=== PATIENT | male | born 1970 | race Caucasian/White ===

== ENCOUNTER 2016-12-10 01:10 | Emergency (ER) | payer MEDICAID ==
[~2016-12-10] VITALS: Ht 170.2 cm; Wt 75.0 kg
[~2016-12-10 01:10] MED LIST: AMLO10TA55 PO; CARV6 PO; INSLAN SQ; INSNOV SQ; LEVE500T53 PO; PANT40TA25 PO
[2016-12-10 01:32] LABS: GLUCOSE,POINT OF CARE 154 MG/DL (70-110)
[2016-12-10] MEDS ORDERED: ONDANSETRON HCL 4 MG/2 ML VIAL IVP ONE ×2 (02:15→04:45)
[2016-12-10 02:22] LABS: GLUCOSE COMMENT 1 Doctor Notified; GLUCOSE,POINT OF CARE 267 MG/DL (70-110)
[2016-12-10 02:25] LABS: BASOPHILS % (AUTO) 0.3 % (0.0-2.0); EOSINOPHILS % (AUTO) 1.2 % (1.0-6.0); HEMATOCRIT 39.9 % (41-53); HEMOGLOBIN 13.1 g/dL (13.5-17.5); LYMPHOCYTES # (AUTO) 1.6 K/uL (1.0-4.8); MEAN CORPUSCULAR HGB CONC 32.9 G/dL (31.0-37.0); MEAN CORPUSCULAR VOLUME 91 fL (80-100); MONOCYTES # (AUTO) 0.7 K/uL (0.1-1.0); MONOCYTES % (AUTO) 7.2 % (2.0-9.0); NEUTROPHILS # (AUTO) 6.7 K/uL (1.8-7.7); NEUTROPHILS % (AUTO) 73.3 % (40.0-70.0); PLATELET COUNT (AUTO) 572 K/uL (150-450); RED BLOOD CELL COUNT(AUTO) 4.38 MIL/uL (4.50-5.90); RED CELL DISTRIBUTION WIDTH 17.4 % (11.5-14.5); WHITE BLOOD COUNT (AUTO) 9.1 K/uL (4.5-11.0)
[2016-12-10 02:33] LABS: ANION GAP 9 mmol/L (8-16); CALCIUM, TOTAL 8.7 mg/dL (8.8-10.5); CARBON DIOXIDE 27 mmol/L (22-29); CHLORIDE 100 mmol/L (98-107); CREATININE 1.13 mg/dL (0.60-1.30); GLOMERULAR FILTR. RATE CALC > 60 mL/min (>60); POTASSIUM 3.9 mmol/L (3.5-5.1); SODIUM SERUM 136 mmol/L (136-145); UREA NITROGEN, BLOOD 15 mg/dL (7-18)
[2016-12-10 02:39] LABS: ALANINE AMINOTRANSFERASE 12 U/L (12-78); ALBUMIN 3.2 g/dL (3.4-5.0); ASPARTATE AMINOTRANSFERASE 14 U/L (15-37); BILIRUBIN,TOTAL 0.1 mg/dL (0.1-1.0)
[2016-12-10] MEDS ORDERED: PANTOPRAZOLE SODIUM 40 MG/VIAL IVP ONE (03:15)
[2016-12-10] MEDS ORDERED: DONNATAL/LIDOCAINE/MAALOX 55 ML BOTTLE PO ONE ×2 (03:15→04:30)
[2016-12-10] MEDS ORDERED: RANITIDINE HCL 150 MG TABLET PO ONE (04:30)
[2016-12-10 04:43] VITALS: BP 140/78
== END 2016-12-10 05:34 | disposition home or self-care (01) ==
LOC: EMS 01:12
DX: E09.649 Drug or chemical induced diabetes mellitus with hypoglycemia without coma (principal); R41.82 Altered mental status, unspecified; T68.XXXA Hypothermia, initial encounter; F10.20 Alcohol dependence, uncomplicated; F17.210 Nicotine dependence, cigarettes, uncomplicated; I10 Essential (primary) hypertension; K21.9 Gastro-esophageal reflux disease without esophagitis; Z79.4 Long term (current) use of insulin; Z88.8 Allergy status to other drugs, medicaments and biological substances
CPT/HCPCS: 36415; 80053; 82948; 82962; 84484; 85025; 93005; 93041; 96374; 96375; 96376; 99285; 99406; C9113; G0480; J2405; Z7610

== ENCOUNTER 2016-12-14 02:42 | Inpatient (IN) | payer MEDICAID ==
[~2016-12-14] VITALS: Ht 167.6 cm; Wt 65.1 kg
[2016-12-14 03:37] LABS: BASOPHILS % (AUTO) 0.5 % (0.0-2.0); EOSINOPHILS % (AUTO) 0.8 % (1.0-6.0); HEMATOCRIT 39.4 % (41-53); LYMPHOCYTES # (AUTO) 1.2 K/uL (1.0-4.8); LYMPHOCYTES % (AUTO) 19.7 % (22.0-44.0); MEAN CORPUSCULAR HEMOGLOBIN 30.1 pg (26.0-34.0); MEAN CORPUSCULAR HGB CONC 32.9 G/dL (31.0-37.0); MEAN CORPUSCULAR VOLUME 91 fL (80-100); MONOCYTES # (AUTO) 0.6 K/uL (0.1-1.0); MONOCYTES % (AUTO) 9.6 % (2.0-9.0); NEUTROPHILS # (AUTO) 4.1 K/uL (1.8-7.7); NEUTROPHILS % (AUTO) 69.4 % (40.0-70.0); PLATELET COUNT (AUTO) 409 K/uL (150-450); RED BLOOD CELL COUNT(AUTO) 4.31 MIL/uL (4.50-5.90); RED CELL DISTRIBUTION WIDTH 17.2 % (11.5-14.5); WHITE BLOOD COUNT (AUTO) 5.9 K/uL (4.5-11.0)
[2016-12-14 03:49] LABS: ANION GAP 9 mmol/L (8-16); CALCIUM, TOTAL 8.7 mg/dL (8.8-10.5); CARBON DIOXIDE 27 mmol/L (22-29); CHLORIDE 100 mmol/L (98-107); CREATININE 1.28 mg/dL (0.60-1.30); GLOMERULAR FILTR. RATE CALC 60 mL/min (>60); POTASSIUM 4.5 mmol/L (3.5-5.1); SODIUM SERUM 136 mmol/L (136-145); UREA NITROGEN, BLOOD 13 mg/dL (7-18)
[2016-12-14 03:55] LABS: ALANINE AMINOTRANSFERASE 16 U/L (12-78); ALBUMIN 3.1 g/dL (3.4-5.0); ASPARTATE AMINOTRANSFERASE 16 U/L (15-37); BILIRUBIN,TOTAL 0.4 mg/dL (0.1-1.0); TOTAL PROTEIN, SERUM 7.5 g/dL (6.4-8.2)
[2016-12-14 04:00] LABS: RBC MORPHOLOGY COMMENT ABNORMAL RBC MORPH
[2016-12-14 04:51] LABS: GLUCOSE,POINT OF CARE 247 MG/DL (70-110)
[2016-12-14] MEDS ORDERED: ONDANSETRON HCL 4 MG/2 ML VIAL IVP PRN (05:00)
[2016-12-14] MEDS ORDERED: 0.9% SODIUM CHLORIDE 10 ML SYRINGE IVP PRN (05:00)
[2016-12-14] MEDS ORDERED: ACETAMINOPHEN 325 MG TABLET PO PRN ×2 (05:00→11:00)
[2016-12-14 05:29] LABS: APPEARANCE,URINE CLEAR (CLEAR); GLUCOSE, URINE (UA) 100 mg/dL (NEGATIVE); KETONES,URINE NEGATIVE (NEGATIVE); LEUKOCYTE ESTERASE ,URINE NEGATIVE (NEGATIVE); OCCULT BLOOD,URINE NEGATIVE (NEGATIVE); PH,URINE 6.5 (5.0-8.0); PROTEIN,URINE SEE CONFIRM (NEGATIVE)
[2016-12-14 05:36] LABS: SULFOSALICYLIC ACID,URINE 1+ (Negative)
[2016-12-14 05:37] LABS: RBC,URINE None Seen /HPF (0-2); SQUAMOUS EPITHELIAL CELL,UR Rare /LPF (None Seen); WBC,URINE 0-2 /HPF (0-5)
[2016-12-14 08:06] LABS: GLUCOSE,POINT OF CARE 124 MG/DL (70-110)
[2016-12-14 09:49] VITALS: BP 142/90
[2016-12-14] MEDS ORDERED: MAGNESIUM HYDROXIDE SUSPENSION 30 ML UDCUP PO PRN (11:00)
[2016-12-14] MEDS ORDERED: DEXTROSE 50%-WATER 25 GM/50 ML SYRINGE IVP PRN (11:00)
[2016-12-14 11:39] VITALS: BP 129/65
[2016-12-14] MEDS: OxyCODONE HCL/ACETAMINOPHEN 5-325 MG TABLET PO PRN ×2 (11:39→20:01)
[2016-12-14] MEDS: PANTOPRAZOLE SODIUM 40 MG DR TABLET PO SCH (11:39)
[2016-12-14] MEDS: INSULIN ASPART 100 UNITS/ML SQ PRN ×3 (11:42→21:21)
[2016-12-14 13:06] LABS: GLUCOSE,POINT OF CARE 184 MG/DL (70-110)
[2016-12-14] MEDS ORDERED: INFLUENZA VIRUS VACCINE QVS 2016-17 (3YR+)/PF 60 MCG/0.5 ML SYRINGE IM ONE (14:00)
[2016-12-14 16:37] VITALS: BP 136/85
[2016-12-14 18:30] LABS: GLUCOSE COMMENT 1 Received Meds; GLUCOSE,POINT OF CARE 285 MG/DL (70-110)
[2016-12-14 19:17] VITALS: BP 137/89
[2016-12-14] MEDS: LevETIRAcetam 500 MG TABLET PO SCH (20:00)
[2016-12-14] MEDS: DOCUSATE SODIUM 100 MG CAPSULE PO SCH (20:00)
[2016-12-14] MEDS: HEPARIN SODIUM,PORCINE 5,000 UNITS/ML VIAL SQ SCH (20:04)
[2016-12-14 21:57] LABS: GLUCOSE COMMENT 1 Received Meds; GLUCOSE,POINT OF CARE 192 MG/DL (70-110)
[2016-12-15 00:08] VITALS: BP 129/80
[2016-12-15 04:37] VITALS: BP 136/89
[2016-12-15] MEDS: INSULIN ASPART 100 UNITS/ML SQ PRN ×2 (05:54→11:47)
[2016-12-15] MEDS: OxyCODONE HCL/ACETAMINOPHEN 5-325 MG TABLET PO PRN ×2 (05:57→10:52)
[2016-12-15 06:16] LABS: GLUCOSE,POINT OF CARE 392 MG/DL (70-110)
[2016-12-15 08:08] VITALS: BP 118/87
[2016-12-15] MEDS: DOCUSATE SODIUM 100 MG CAPSULE PO SCH (08:37)
[2016-12-15] MEDS: HEPARIN SODIUM,PORCINE 5,000 UNITS/ML VIAL SQ SCH (08:37)
[2016-12-15] MEDS: PANTOPRAZOLE SODIUM 40 MG DR TABLET PO SCH (08:37)
[2016-12-15] MEDS: LevETIRAcetam 500 MG TABLET PO SCH (08:37)
[2016-12-15 11:10] VITALS: BP 158/95
[2016-12-15 12:06] LABS: GLUCOSE,POINT OF CARE 385 MG/DL (70-110)
== END 2016-12-15 14:41 | disposition home or self-care (01) | DRG 420 ==
LOC: EMS 02:44 → 6N 07:57
PROVIDERS: ADMIT Internal Medicine; ATTEND Internal Medicine
DX: E11.649 Type 2 diabetes mellitus with hypoglycemia without coma (principal); T68.XXXA Hypothermia, initial encounter; Z86.74 Personal history of sudden cardiac arrest; E44.0 Moderate protein-calorie malnutrition; E11.65 Type 2 diabetes mellitus with hyperglycemia; F10.20 Alcohol dependence, uncomplicated; I10 Essential (primary) hypertension; E11.319 Type 2 diabetes mellitus with unspecified diabetic retinopathy without macular edema; G40.909 Epilepsy, unspecified, not intractable, without status epilepticus; F17.210 Nicotine dependence, cigarettes, uncomplicated; F81.9 Developmental disorder of scholastic skills, unspecified; Z88.1 Allergy status to other antibiotic agents; Z68.23 Body mass index [BMI] 23.0-23.9, adult; Z88.8 Allergy status to other drugs, medicaments and biological substances; Z79.899 Other long term (current) drug therapy; Z79.4 Long term (current) use of insulin; Z89.511 Acquired absence of right leg below knee
CPT/HCPCS: 82962; 93005; 99285; G0480; J1644

== ENCOUNTER 2016-12-21 01:32 | Emergency (ER) | payer MEDICAID ==
[~2016-12-21] VITALS: Ht 170.2 cm; Wt 75.0 kg
[~2016-12-21 01:32] MED LIST changes: -AMLO10TA55 PO; -INSLAN SQ
[2016-12-21] MEDS ORDERED: DEXTROSE 50%-WATER 25 GM/50 ML SYRINGE IVP ONE (02:15)
[2016-12-21] MEDS ORDERED: MAGNESIUM SULFATE 2 GM, MVI, ADULT NO.1 WITH VIT K 10 ML, THIAMINE HCL 100 MG, FOLIC AC... IV ONE ×5 (02:15)
[2016-12-21 03:04] LABS: BASOPHILS # (AUTO) 0.05 K/uL (0.00-0.20); BASOPHILS % (AUTO) 0.3 % (0.0-2.0); EOSINOPHILS # (AUTO) 0.05 K/uL (0.00-0.70); EOSINOPHILS % (AUTO) 0.28 % (1.0-6.0); HEMATOCRIT 38.7 % (41-53); LYMPHOCYTES # (AUTO) 1.6 K/uL (1.0-4.8); LYMPHOCYTES % (AUTO) 8.5 % (22.0-44.0); MEAN CORPUSCULAR HEMOGLOBIN 30.8 pg (26.0-34.0); MEAN CORPUSCULAR HGB CONC 33.4 G/dL (31.0-37.0); MEAN CORPUSCULAR VOLUME 92 fL (80-100); MONOCYTES % (AUTO) 5.1 % (2.0-9.0); NEUTROPHILS # (AUTO) 16.3 K/uL (1.8-7.7); NEUTROPHILS % (AUTO) 85.9 % (40.0-70.0); PLATELET COUNT (AUTO) 296 K/uL (150-450); RED CELL DISTRIBUTION WIDTH 17.2 % (11.5-14.5); WHITE BLOOD COUNT (AUTO) 18.9 K/uL (4.5-11.0)
[2016-12-21 03:14] LABS: ANION GAP 10 mmol/L (8-16); CALCIUM, TOTAL 8.3 mg/dL (8.8-10.5); CARBON DIOXIDE 23 mmol/L (22-29); CHLORIDE 103 mmol/L (98-107); CREATININE 1.18 mg/dL (0.60-1.30); GLOMERULAR FILTR. RATE CALC > 60 mL/min (>60); POTASSIUM 4.3 mmol/L (3.5-5.1); SODIUM SERUM 136 mmol/L (136-145); UREA NITROGEN, BLOOD 18 mg/dL (7-18)
[2016-12-21 03:19] LABS: ALANINE AMINOTRANSFERASE 16 U/L (12-78); ASPARTATE AMINOTRANSFERASE 21 U/L (15-37); BILIRUBIN,TOTAL 0.3 mg/dL (0.1-1.0); TOTAL PROTEIN, SERUM 7.6 g/dL (6.4-8.2)
[2016-12-21 04:57] LABS: GLUCOSE,POINT OF CARE 104 MG/DL (70-110)
[2016-12-21 06:00] VITALS: BP 129/71
== END 2016-12-21 06:02 | disposition home or self-care (01) ==
LOC: EMS 01:35
DX: T68.XXXA Hypothermia, initial encounter (principal); E11.649 Type 2 diabetes mellitus with hypoglycemia without coma; J00 Acute nasopharyngitis [common cold]; I10 Essential (primary) hypertension; F17.210 Nicotine dependence, cigarettes, uncomplicated; Z79.4 Long term (current) use of insulin; Z88.1 Allergy status to other antibiotic agents; Z88.8 Allergy status to other drugs, medicaments and biological substances
CPT/HCPCS: 36415; 80053; 82962; 85025; 96365; 96366; 96375; 99285; G0480; J3411; J3475; J3490 ×2; J7030

== ENCOUNTER 2017-05-24 00:52 | Emergency (ER) | payer MEDICAID ==
[~2017-05-24] VITALS: Ht 170.2 cm; Wt 75.0 kg
[2017-05-24 02:09] LABS: BASOPHILS # (AUTO) 0.07 K/uL (0.00-0.20); BASOPHILS % (AUTO) 0.4 % (0.0-2.0); EOSINOPHILS # (AUTO) 0.08 K/uL (0.00-0.70); EOSINOPHILS % (AUTO) 0.45 % (1.0-6.0); HEMATOCRIT 33.1 % (41-53); HEMOGLOBIN 11.1 g/dL (13.5-17.5); LYMPHOCYTES # (AUTO) 1.2 K/uL (1.0-4.8); LYMPHOCYTES % (AUTO) 6.9 % (22.0-44.0); MEAN CORPUSCULAR HEMOGLOBIN 31.5 pg (26.0-34.0); MEAN CORPUSCULAR HGB CONC 33.5 G/dL (31.0-37.0); MEAN CORPUSCULAR VOLUME 94 fL (80-100); MONOCYTES % (AUTO) 5.5 % (2.0-9.0); NEUTROPHILS # (AUTO) 15.1 K/uL (1.8-7.7); PLATELET COUNT (AUTO) 419 K/uL (150-450); RED BLOOD CELL COUNT(AUTO) 3.52 MIL/uL (4.50-5.90); RED CELL DISTRIBUTION WIDTH 16.6 % (11.5-14.5); WHITE BLOOD COUNT (AUTO) 17.4 K/uL (4.5-11.0)
[2017-05-24 02:10] LABS: NEUTROPHILS % (AUTO) 86.7 % (40.0-70.0)
[2017-05-24 02:28] LABS: CALCIUM, TOTAL 8.9 mg/dL (8.8-10.5); CREATININE 1.86 mg/dL (0.60-1.30)
[2017-05-24 02:33] LABS: ALBUMIN 3.3 g/dL (3.4-5.0); BILIRUBIN,TOTAL 0.2 mg/dL (0.1-1.0); TOTAL PROTEIN, SERUM 7.4 g/dL (6.4-8.2)
[2017-05-24] MEDS ORDERED: DEXTROSE 50%-WATER 25 GM/50 ML SYRINGE IVP ONE ×2 (04:00)
[2017-05-24] MEDS ORDERED: ONDANSETRON HCL 4 MG/2 ML VIAL IVP ONE (06:00)
[2017-05-24 06:28] VITALS: BP 143/64
[2017-05-24 07:11] LABS: APPEARANCE,URINE CLEAR (CLEAR); GLUCOSE, URINE (UA) NEGATIVE (NEGATIVE); KETONES,URINE NEGATIVE (NEGATIVE); LEUKOCYTE ESTERASE ,URINE NEGATIVE (NEGATIVE); OCCULT BLOOD,URINE NEGATIVE (NEGATIVE); PROTEIN,URINE TRACE (NEGATIVE)
[2017-05-24 07:16] LABS: RBC,URINE 0-2 /HPF (0-2); WBC,URINE 0-2 /HPF (0-5)
[2017-05-24 08:59] LABS: GLUCOSE COMMENT 1 Juice/Food/D50 Given; GLUCOSE,POINT OF CARE 195 MG/DL (70-110)
[2017-05-24 08:59] LABS: GLUCOSE COMMENT 1 Repeated; GLUCOSE,POINT OF CARE 94 MG/DL (70-110)
[2017-05-24 08:59] LABS: GLUCOSE COMMENT 2 Doctor Notified; GLUCOSE,POINT OF CARE 189 MG/DL (70-110)
[2017-05-24 08:59] LABS: GLUCOSE,POINT OF CARE 135 MG/DL (70-110)
[2017-05-24 09:04] LABS: GLUCOSE COMMENT 1 Doctor Notified; GLUCOSE,POINT OF CARE 124 MG/DL (70-110)
[2017-05-24 09:04] LABS: GLUCOSE COMMENT 1 Received Meds; GLUCOSE,POINT OF CARE 133 MG/DL (70-110)
[2017-06-11] MEDS ORDERED: INSLAN SQ (09:16)
== END 2017-05-24 07:00 | disposition home or self-care (01) ==
LOC: EMS 00:54
DX: E83.51 Hypocalcemia (principal); I10 Essential (primary) hypertension; E11.29 Type 2 diabetes mellitus with other diabetic kidney complication; F17.210 Nicotine dependence, cigarettes, uncomplicated; Z79.4 Long term (current) use of insulin; Z88.1 Allergy status to other antibiotic agents; Z88.8 Allergy status to other drugs, medicaments and biological substances
CPT/HCPCS: 36415; 80053; 80307; 81001; 82962; 85025; 96374; 96375; 99284; J2405

== ENCOUNTER 2017-07-29 20:47 | Emergency (ER) | payer MEDICAID ==
[~2017-07-29] VITALS: Ht 170.2 cm; Wt 77.3 kg
[~2017-07-29 20:47] MED LIST changes: +INSLAN SQ; +LACT30L PO
[2017-07-29 22:07] LABS: ANION GAP 15 mmol/L (8-16); CALCIUM, TOTAL 8.6 mg/dL (8.8-10.5); CARBON DIOXIDE 17 mmol/L (22-29); CHLORIDE 110 mmol/L (98-107); CREATININE 1.52 mg/dL (0.60-1.30); GLOMERULAR FILTR. RATE CALC 49 mL/min (>60); POTASSIUM 4.2 mmol/L (3.5-5.1); SODIUM SERUM 142 mmol/L (136-145); UREA NITROGEN, BLOOD 16 mg/dL (7-18)
[2017-07-29 22:15] LABS: ALANINE AMINOTRANSFERASE 40 U/L (12-78); ALBUMIN 3.3 g/dL (3.4-5.0); ASPARTATE AMINOTRANSFERASE 24 U/L (15-37); BILIRUBIN,TOTAL 0.1 mg/dL (0.1-1.0)
[2017-07-29 22:23] LABS: TROPONIN I < 0.02 ng/mL (0.00-0.05)
[2017-07-29 22:30] LABS: BASOPHILS % (AUTO) 0.3 % (0.0-2.0); EOSINOPHILS % (AUTO) 0 % (1.0-6.0); HEMATOCRIT 31.6 % (41-53); LYMPHOCYTES # (AUTO) 1.6 K/uL (1.0-4.8); LYMPHOCYTES % (AUTO) 12.4 % (22.0-44.0); MEAN CORPUSCULAR HEMOGLOBIN 31.7 pg (26.0-34.0); MEAN CORPUSCULAR HGB CONC 34.8 G/dL (31.0-37.0); MEAN CORPUSCULAR VOLUME 91 fL (80-100); MONOCYTES # (AUTO) 0.6 K/uL (0.1-1.0); MONOCYTES % (AUTO) 4.9 % (2.0-9.0); NEUTROPHILS # (AUTO) 10.3 K/uL (1.8-7.7); NEUTROPHILS % (AUTO) 82.4 % (40.0-70.0); PLATELET COUNT (AUTO) 360 K/uL (150-450); RED BLOOD CELL COUNT(AUTO) 3.47 MIL/uL (4.50-5.90); RED CELL DISTRIBUTION WIDTH 14.4 % (11.5-14.5); WHITE BLOOD COUNT (AUTO) 12.6 K/uL (4.5-11.0)
[2017-07-29 22:31] LABS: AMMONIA 116 umol/L (11-32)
[2017-07-29] MEDS ORDERED: LACTULOSE 20 GM/30 ML SOLUTION UDCUP PO ONE (23:15)
[2017-07-29 23:30] LABS: LACTIC ACID 2.6 mmol/L (0.4-2.0)
[2017-07-29 23:50] LABS: REFLEX LACTIC ACID? YES YES
[2017-07-30 00:01] VITALS: BP 134/62
[2017-07-30 09:59] LABS: GLUCOSE,POINT OF CARE 189 MG/DL (70-110)
[2017-07-30 09:59] LABS: GLUCOSE,POINT OF CARE 174 MG/DL (70-110)
[2017-07-30 09:59] LABS: GLUCOSE COMMENT 1 Doctor Notified; GLUCOSE,POINT OF CARE 167 MG/DL (70-110)
== END 2017-07-30 00:20 | disposition home or self-care (01) ==
LOC: EMS 20:49
DX: E11.649 Type 2 diabetes mellitus with hypoglycemia without coma (principal); F10.129 Alcohol abuse with intoxication, unspecified; I10 Essential (primary) hypertension; K74.60 Unspecified cirrhosis of liver; Z88.1 Allergy status to other antibiotic agents; Z88.8 Allergy status to other drugs, medicaments and biological substances
CPT/HCPCS: 36415; 80053; 82140; 82962; 83605; 83690; 84484; 85025; 99284; G0480

== ENCOUNTER 2017-07-31 01:42 | Emergency (ER) | payer MEDICAID ==
[~2017-07-31] VITALS: Ht 170.2 cm; Wt 68.2 kg
[2017-07-31 02:06] LABS: GLUCOSE,POINT OF CARE 115 MG/DL (70-110)
[2017-07-31 02:46] LABS: BASOPHILS % (AUTO) 0.6 % (0.0-2.0); EOSINOPHILS % (AUTO) 2.5 % (1.0-6.0); HEMOGLOBIN 11.3 g/dL (13.5-17.5); LYMPHOCYTES # (AUTO) 2.2 K/uL (1.0-4.8); LYMPHOCYTES % (AUTO) 28.6 % (22.0-44.0); MEAN CORPUSCULAR HEMOGLOBIN 31.5 pg (26.0-34.0); MEAN CORPUSCULAR HGB CONC 34.3 G/dL (31.0-37.0); MEAN CORPUSCULAR VOLUME 92 fL (80-100); MONOCYTES # (AUTO) 0.9 K/uL (0.1-1.0); MONOCYTES % (AUTO) 11.5 % (2.0-9.0); NEUTROPHILS # (AUTO) 4.3 K/uL (1.8-7.7); NEUTROPHILS % (AUTO) 56.8 % (40.0-70.0); PLATELET COUNT (AUTO) 414 K/uL (150-450); RED CELL DISTRIBUTION WIDTH 14.5 % (11.5-14.5); WHITE BLOOD COUNT (AUTO) 7.6 K/uL (4.5-11.0)
[2017-07-31 02:52] LABS: ANION GAP 14 mmol/L (8-16); CALCIUM, TOTAL 8.7 mg/dL (8.8-10.5); CARBON DIOXIDE 20 mmol/L (22-29); CHLORIDE 111 mmol/L (98-107); CREATININE 1.64 mg/dL (0.60-1.30); GLOMERULAR FILTR. RATE CALC 45 mL/min (>60); POTASSIUM 3.4 mmol/L (3.5-5.1); SODIUM SERUM 145 mmol/L (136-145); UREA NITROGEN, BLOOD 20 mg/dL (7-18)
[2017-07-31 02:59] LABS: ALANINE AMINOTRANSFERASE 40 U/L (12-78); ALBUMIN 3.7 g/dL (3.4-5.0); ASPARTATE AMINOTRANSFERASE 24 U/L (15-37); BILIRUBIN,TOTAL 0.2 mg/dL (0.1-1.0); TOTAL PROTEIN, SERUM 7.5 g/dL (6.4-8.2)
[2017-07-31 03:02] LABS: GLUCOSE,POINT OF CARE 162 MG/DL (70-110)
[2017-07-31] MEDS ORDERED: LACTULOSE 20 GM/30 ML SOLUTION UDCUP PO ONE (03:30)
[2017-07-31] MEDS ORDERED: POTASSIUM CHLORIDE 10% 40 MEQ/30 ML LIQUID UDCUP PO ONE (03:30)
[2017-07-31 04:10] VITALS: BP 136/76
[2017-07-31 04:42] LABS: GLUCOSE COMMENT 2 Doctor Notified; GLUCOSE,POINT OF CARE 189 MG/DL (70-110)
== END 2017-07-31 04:41 | disposition home or self-care (01) ==
LOC: EMS 01:46
DX: E11.649 Type 2 diabetes mellitus with hypoglycemia without coma (principal); E87.6 Hypokalemia; I10 Essential (primary) hypertension; F17.210 Nicotine dependence, cigarettes, uncomplicated; Z88.1 Allergy status to other antibiotic agents; Z88.8 Allergy status to other drugs, medicaments and biological substances; Z79.4 Long term (current) use of insulin
CPT/HCPCS: 36415; 80053; 82962; 85025; 99284; 99406; G0480

== ENCOUNTER 2017-10-02 07:36 | Inpatient (IN) | payer MEDICAID ==
[~2017-10-02] VITALS: Ht 175.3 cm; Wt 61.5 kg
[2017-10-02] MEDS ORDERED: PANT40TA25 PO (07:49)
[2017-10-02] MEDS ORDERED: FOLI1 PO (07:49)
[2017-10-02] MEDS ORDERED: TOPI100T37 PO (07:49)
[2017-10-02] MEDS ORDERED: ATOR10TA84 PO (07:49)
[2017-10-02] MEDS ORDERED: AMLO-512 PO (07:49)
[2017-10-02] MEDS ORDERED: HYDR-2924 PO (07:49)
[2017-10-02] MEDS ORDERED: DIVA500T35 PO (07:49)
[2017-10-02] MEDS ORDERED: CARV6 PO (07:49)
[2017-10-02] MEDS ORDERED: LORazepam 2 MG/ML VIAL ONE (07:57)
[2017-10-02 08:09] LABS: APPEARANCE,URINE CLEAR (CLEAR); GLUCOSE, URINE (UA) >=1000 mg/dL (NEGATIVE); KETONES,URINE TRACE mg/dL (NEGATIVE); LEUKOCYTE ESTERASE ,URINE NEGATIVE (NEGATIVE); OCCULT BLOOD,URINE NEGATIVE (NEGATIVE); PROTEIN,URINE TRACE (NEGATIVE)
[2017-10-02 08:14] LABS: BASOPHILS % (AUTO) 0.4 % (0.0-2.0); EOSINOPHILS % (AUTO) 0.2 % (1.0-6.0); HEMATOCRIT 36.9 % (41-53); LYMPHOCYTES # (AUTO) 1.6 K/uL (1.0-4.8); LYMPHOCYTES % (AUTO) 44.5 % (22.0-44.0); MEAN CORPUSCULAR HEMOGLOBIN 30.9 pg (26.0-34.0); MEAN CORPUSCULAR HGB CONC 35.2 G/dL (31.0-37.0); MEAN CORPUSCULAR VOLUME 88 fL (80-100); MONOCYTES # (AUTO) 0.3 K/uL (0.1-1.0); MONOCYTES % (AUTO) 7.4 % (2.0-9.0); NEUTROPHILS # (AUTO) 1.8 K/uL (1.8-7.7); NEUTROPHILS % (AUTO) 47.5 % (40.0-70.0); PLATELET COUNT (AUTO) 271 K/uL (150-450); RED BLOOD CELL COUNT(AUTO) 4.21 MIL/uL (4.50-5.90); RED CELL DISTRIBUTION WIDTH 13.2 % (11.5-14.5); WHITE BLOOD COUNT (AUTO) 3.7 K/uL (4.5-11.0)
[2017-10-02 08:17] LABS: ADD UA MICROSCOPIC YES
[2017-10-02 08:19] LABS: ANION GAP 23 mmol/L (8-16); CALCIUM, TOTAL 9.4 mg/dL (8.8-10.5); CARBON DIOXIDE 14 mmol/L (22-29); CHLORIDE 99 mmol/L (98-107); CREATININE 1.58 mg/dL (0.60-1.30); GLOMERULAR FILTR. RATE CALC 47 mL/min (>60); POTASSIUM 3.6 mmol/L (3.5-5.1); SODIUM SERUM 136 mmol/L (136-145); UREA NITROGEN, BLOOD 21 mg/dL (7-18)
[2017-10-02] MEDS ORDERED: PROPOFOL 1000 MG/ISO-OSM 100 ML IV ONE (08:22)
[2017-10-02 08:25] LABS: ALANINE AMINOTRANSFERASE 25 U/L (12-78); ALBUMIN 3.5 g/dL (3.4-5.0); ASPARTATE AMINOTRANSFERASE 16 U/L (15-37); BILIRUBIN,TOTAL 0.1 mg/dL (0.1-1.0); CREATINE KINASE, TOTAL 65 U/L (39-308); TOTAL PROTEIN, SERUM 7.9 g/dL (6.4-8.2)
[2017-10-02 08:28] LABS: RBC,URINE None Seen /HPF (0-2); SQUAMOUS EPITHELIAL CELL,UR Few /LPF (None Seen); WBC,URINE None Seen /HPF (0-5)
[2017-10-02] MEDS ORDERED: SUCCINYLCHOLINE CHLORIDE 20 MG/ML 10 ML VIAL IVP ONE (08:30)
[2017-10-02] MEDS ORDERED: LORazepam 2 MG/ML VIAL IVP ONE (08:30)
[2017-10-02] MEDS ORDERED: ETOMIDATE 2 MG/ML 10 ML VIAL IVP ONE (08:30)
[2017-10-02] MEDS: PROPOFOL 1000 MG/ISO-OSM 100 ML IV PRN ×2 (08:40→16:25)
[2017-10-02 08:49] LABS: LACTIC ACID 7.8 mmol/L (0.4-2.0)
[2017-10-02 08:52] LABS: B-TYPE NATRIURETIC PEPTIDE 50 pg/mL (0-100)
[2017-10-02 09:21] LABS: INR 1.1 (0.9-1.1); PROTHROMBIN TIME 11.6 SEC (9.4-11.6)
[2017-10-02 09:24] LABS: ABG A-A DIFF O2 288.5 mmHg (10-20.0); ABG BASE EXCESS -2.9 mmol/L (-2.0-3.0); ABG HCO3 23.7 mmol/L (22.0-26.0); ABG OXYHEMOGLOBIN 92.3 % (94.0-100.0); ABG PCO2 18 mmHg (35-45); ABG PH 7.634 (7.35-7.450); ALLEN TEST, BLOOD GAS Positive; TEMPERATURE, FAHRENHEIT, BG 94.9 FAHREN (96.0-98.6)
[2017-10-02] MEDS ORDERED: SODIUM CHLORIDE 0.9% 1,000 ML IV ONE (09:30)
[2017-10-02] MEDS ORDERED: FentaNYL CITRATE-PF 100 MCG/2 ML VIAL IVP ONE (10:00)
[2017-10-02 10:01] LABS: REFLEX LACTIC ACID? YES YES
[2017-10-02 10:02] LABS: GLUCOSE,POINT OF CARE 253 MG/DL (70-110)
[2017-10-02 10:05] LABS: SALICYLATE 1.7 mg/dL (2.8-20.0)
[2017-10-02 10:09] LABS: ACETAMINOPHEN < 2 mcg/mL (10-30)
[2017-10-02] MEDS: FentaNYL CITRATE PF 500 MCG in DEXTROSE 5%-WATER 90 ML IV PRN ×2 (10:16→19:29)
[2017-10-02 10:55] LABS: ABG BASE EXCESS -3.6 mmol/L (-2.0-3.0); ABG HCO3 22.9 mmol/L (22.0-26.0); ABG OXYHEMOGLOBIN 95.8 % (94.0-100.0); ABG PH 7.595 (7.35-7.450); TEMPERATURE, FAHRENHEIT, BG 96.5 FAHREN (96.0-98.6)
[2017-10-02 10:56] LABS: ABG PCO2 19 mmHg (35-45); ALLEN TEST, BLOOD GAS Positive
[2017-10-02] MEDS ORDERED: 0.9% SODIUM CHLORIDE 10 ML SYRINGE IVP PRN ×2 (12:15→22:45)
[2017-10-02] MEDS ORDERED: *CLINICAL-LEVOFLOXACIN IVPB DOSING CLINICAL ONE ×2 (12:15)
[2017-10-02] MEDS ORDERED: ACETAMINOPHEN 325 MG TABLET PO PRN (12:15)
[2017-10-02 12:45] VITALS: BP 165/132
[2017-10-02] MEDS ORDERED: MEPERIDINE-PF 25 MG/ML SYRINGE IVP ONE (13:15)
[2017-10-02 13:27] LABS: SALICYLATE 0.8 mg/dL (2.8-20.0)
[2017-10-02] MEDS ORDERED: SODIUM CHLORIDE 0.9% 250 ML IV ONE (13:30)
[2017-10-02] MEDS: LevETIRAcetam 500 MG in DEXTROSE 5%-WATER 100 ML IV SCH (13:32)
[2017-10-02] MEDS: LEVOFLOXACIN 750 MG/D5% WATER 150 ML IV SCH (13:32)
[2017-10-02 14:00] VITALS: BP 138/74
[2017-10-02 16:00] VITALS: BP_SYST 118; BP_DIAS 73; BP_DIAS 78
[2017-10-02 18:00] VITALS: BP 135/92
[2017-10-02 20:00] VITALS: BP 109/78
[2017-10-03] VITALS: BP_SYST 96; BP_SYST 99; BP_DIAS 62
[2017-10-03] MEDS: LevETIRAcetam 500 MG in DEXTROSE 5%-WATER 100 ML IV SCH ×2 (01:02→12:07)
[2017-10-03 04:00] VITALS: BP 112/65
[2017-10-03] MEDS: PROPOFOL 1000 MG/ISO-OSM 100 ML IV PRN ×5 (04:28→23:07)
[2017-10-03 05:10] LABS: BASOPHILS % (AUTO) 0.3 % (0.0-2.0); EOSINOPHILS % (AUTO) 0.9 % (1.0-6.0); HEMATOCRIT 29.9 % (41-53); HEMOGLOBIN 10.5 g/dL (13.5-17.5); LYMPHOCYTES # (AUTO) 1.8 K/uL (1.0-4.8); LYMPHOCYTES % (AUTO) 18.6 % (22.0-44.0); MEAN CORPUSCULAR HEMOGLOBIN 31.1 pg (26.0-34.0); MEAN CORPUSCULAR HGB CONC 35.2 G/dL (31.0-37.0); MEAN CORPUSCULAR VOLUME 88 fL (80-100); MONOCYTES # (AUTO) 1.2 K/uL (0.1-1.0); MONOCYTES % (AUTO) 12.3 % (2.0-9.0); NEUTROPHILS # (AUTO) 6.6 K/uL (1.8-7.7); NEUTROPHILS % (AUTO) 67.9 % (40.0-70.0); PLATELET COUNT (AUTO) 201 K/uL (150-450); RED BLOOD CELL COUNT(AUTO) 3.38 MIL/uL (4.50-5.90); RED CELL DISTRIBUTION WIDTH 13.7 % (11.5-14.5); WHITE BLOOD COUNT (AUTO) 9.7 K/uL (4.5-11.0)
[2017-10-03 05:27] LABS: CALCIUM, TOTAL 8.2 mg/dL (8.8-10.5); CREATININE 1.48 mg/dL (0.60-1.30); POTASSIUM 3.3 mmol/L (3.5-5.1)
[2017-10-03 08:00] VITALS: BP 132/74
[2017-10-03] MEDS: PANTOPRAZOLE SODIUM 40 MG/VIAL IVP SCH (08:05)
[2017-10-03] MEDS: FentaNYL CITRATE PF 500 MCG in DEXTROSE 5%-WATER 90 ML IV PRN ×3 (08:07→19:44)
[2017-10-03] MEDS ORDERED: POTASSIUM CHL 10 MEQ/WATER 50 ML IV ONE (11:45)
[2017-10-03 12:00] VITALS: BP 99/67
[2017-10-03] MEDS: LEVOFLOXACIN 750 MG/D5% WATER 150 ML IV SCH (12:07)
[2017-10-03 16:00] VITALS: BP 136/88
[2017-10-03] MEDS ORDERED: VANCOMYCIN HCL 1 GM/D5% WATER 200 ML IV ONE (16:00)
[2017-10-03] MEDS: INSULIN ASPART 100 UNITS/ML SQ PRN (16:35)
[2017-10-03] MEDS ORDERED: SODIUM CHLORIDE 0.9% 500 ML IV ONE (17:04)
[2017-10-03 20:00] VITALS: BP 96/61
[2017-10-03 22:22] LABS: GLUCOSE COMMENT 1 Received Meds; GLUCOSE,POINT OF CARE 452 MG/DL (70-110)
[2017-10-03 22:22] LABS: GLUCOSE,POINT OF CARE 78 MG/DL (70-110)
[2017-10-04] VITALS: BP 132/75
[2017-10-04] MEDS: LevETIRAcetam 500 MG in DEXTROSE 5%-WATER 100 ML IV SCH ×2 (00:24→13:32)
[2017-10-04] MEDS: FentaNYL CITRATE PF 500 MCG in DEXTROSE 5%-WATER 90 ML IV PRN ×3 (01:22→11:05)
[2017-10-04] MEDS: PROPOFOL 1000 MG/ISO-OSM 100 ML IV PRN ×3 (03:34→11:04)
[2017-10-04 04:00] VITALS: BP 157/78
[2017-10-04] MEDS ORDERED: SODIUM CHLORIDE 0.9% 500 ML IV ONE (05:29)
[2017-10-04] MEDS: INSULIN ASPART 100 UNITS/ML SQ PRN ×4 (05:39→22:54)
[2017-10-04 05:42] LABS: CALCIUM, TOTAL 8.4 mg/dL (8.8-10.5); CREATININE 1.59 mg/dL (0.60-1.30); POTASSIUM 4.2 mmol/L (3.5-5.1)
[2017-10-04] MEDS: VANCOMYCIN HCL 1.5 GM in DEXTROSE 5%-WATER 250 ML IV SCH (07:07)
[2017-10-04 07:26] LABS: BASOPHILS # (AUTO) 0.06 K/uL (0.00-0.20); BASOPHILS % (AUTO) 0.7 % (0.0-2.0); EOSINOPHILS # (AUTO) 0.19 K/uL (0.00-0.70); EOSINOPHILS % (AUTO) 2.06 % (1.0-6.0); HEMATOCRIT 28.5 % (41-53); HEMOGLOBIN 9.7 g/dL (13.5-17.5); LYMPHOCYTES # (AUTO) 1.7 K/uL (1.0-4.8); LYMPHOCYTES % (AUTO) 18.4 % (22.0-44.0); MEAN CORPUSCULAR HEMOGLOBIN 30.7 pg (26.0-34.0); MEAN CORPUSCULAR HGB CONC 34.1 G/dL (31.0-37.0); MEAN CORPUSCULAR VOLUME 90 fL (80-100); MONOCYTES # (AUTO) 1.5 K/uL (0.1-1.0); MONOCYTES % (AUTO) 16.1 % (2.0-9.0); NEUTROPHILS # (AUTO) 5.7 K/uL (1.8-7.7); NEUTROPHILS % (AUTO) 62.8 % (40.0-70.0); PLATELET COUNT (AUTO) 176 K/uL (150-450); RED BLOOD CELL COUNT(AUTO) 3.17 MIL/uL (4.50-5.90); RED CELL DISTRIBUTION WIDTH 13.2 % (11.5-14.5); WHITE BLOOD COUNT (AUTO) 9.1 K/uL (4.5-11.0)
[2017-10-04 08:00] VITALS: BP 117/77
[2017-10-04] MEDS: PANTOPRAZOLE SODIUM 40 MG/VIAL IVP SCH (08:03)
[2017-10-04 08:31] LABS: GLUCOSE COMMENT 1 Received Meds; GLUCOSE,POINT OF CARE 384 MG/DL (70-110)
[2017-10-04 12:00] VITALS: BP 110/75
[2017-10-04 16:00] VITALS: BP 125/77
[2017-10-04 16:43] LABS: ABG A-A DIFF O2 121.1 mmHg (10-20.0); ABG BASE EXCESS -7.3 mmol/L (-2.0-3.0); ABG HCO3 19.4 mmol/L (22.0-26.0); ABG OXYHEMOGLOBIN 97.8 % (94.0-100.0); ABG PCO2 28 mmHg (35-45); ABG PH 7.412 (7.35-7.450); TEMPERATURE, FAHRENHEIT, BG 99.8 FAHREN (96.0-98.6)
[2017-10-04 16:44] LABS: ALLEN TEST, BLOOD GAS Positive
[2017-10-04 18:13] LABS: GLUCOSE COMMENT 1 Received Meds; GLUCOSE,POINT OF CARE 285 MG/DL (70-110)
[2017-10-04 18:13] LABS: GLUCOSE COMMENT 1 Received Meds; GLUCOSE,POINT OF CARE 303 MG/DL (70-110)
[2017-10-04 20:00] VITALS: BP 133/46
[2017-10-04] MEDS: ACETAMINOPHEN 325 MG TABLET PO PRN (21:06)
[2017-10-04] MEDS ORDERED: ETOMIDATE 2 MG/ML 10 ML VIAL IVP ONE (21:59)
[2017-10-04] MEDS ORDERED: SUCCINYLCHOLINE CHLORIDE 20 MG/ML 10 ML VIAL IVP ONE (21:59)
[2017-10-04] MEDS ORDERED: VECURONIUM BROMIDE 10 MG/VIAL IVP ONE (21:59)
[2017-10-05] VITALS: BP 147/67
[2017-10-05] MEDS: LevETIRAcetam 500 MG in DEXTROSE 5%-WATER 100 ML IV SCH ×2 (01:02→13:37)
[2017-10-05] MEDS ORDERED: SODIUM CHLORIDE 0.9% 100 ML ONE (01:21)
[2017-10-05 03:37] LABS: GLUCOSE COMMENT 1 Received Meds; GLUCOSE,POINT OF CARE 192 MG/DL (70-110)
[2017-10-05] MEDS: ACETAMINOPHEN 325 MG TABLET PO PRN ×2 (03:55→14:17)
[2017-10-05 04:00] VITALS: BP 136/83
[2017-10-05 04:37] LABS: GLUCOSE,POINT OF CARE 331 MG/DL (70-110)
[2017-10-05] MEDS: INSULIN ASPART 100 UNITS/ML SQ PRN ×4 (04:45→20:38)
[2017-10-05 05:04] LABS: ANION GAP 12 mmol/L (8-16); CALCIUM, TOTAL 8.5 mg/dL (8.8-10.5); CARBON DIOXIDE 19 mmol/L (22-29); CHLORIDE 102 mmol/L (98-107); GLOMERULAR FILTR. RATE CALC > 60 mL/min (>60); POTASSIUM 4.2 mmol/L (3.5-5.1); SODIUM SERUM 133 mmol/L (136-145); UREA NITROGEN, BLOOD 17 mg/dL (7-18)
[2017-10-05 08:00] VITALS: BP 96/51
[2017-10-05] MEDS: VANCOMYCIN HCL 1.5 GM in DEXTROSE 5%-WATER 250 ML IV SCH (08:05)
[2017-10-05] MEDS: PANTOPRAZOLE SODIUM 40 MG/VIAL IVP SCH (09:20)
[2017-10-05 12:00] VITALS: BP 132/70
[2017-10-05 14:07] LABS: GLUCOSE,POINT OF CARE 389 MG/DL (70-110)
[2017-10-05 16:00] VITALS: BP 114/81
[2017-10-05 16:37] LABS: GLUCOSE COMMENT 1 Received Meds; GLUCOSE,POINT OF CARE 363 MG/DL (70-110)
[2017-10-05] MEDS ORDERED: OxyCODONE HCL/ACETAMINOPHEN 5-325 MG TABLET PO PRN (20:15)
[2017-10-05 20:24] VITALS: BP 132/74
[2017-10-05] MEDS: INSULIN DETEMIR 100 UNITS/ML SQ SCH (20:39)
[2017-10-05] MEDS: OxyCODONE HCL/ACETAMINOPHEN 5-325 MG TABLET PO PRN (20:42)
[2017-10-06 00:20] VITALS: BP 124/78
[2017-10-06] MEDS: LevETIRAcetam 500 MG in DEXTROSE 5%-WATER 100 ML IV SCH ×2 (01:03→12:43)
[2017-10-06 04:56] VITALS: BP 120/74
[2017-10-06 05:42] LABS: GLUCOSE COMMENT 1 Received Meds; GLUCOSE,POINT OF CARE 326 MG/DL (70-110)
[2017-10-06] MEDS: INSULIN ASPART 100 UNITS/ML SQ PRN ×4 (06:27→21:45)
[2017-10-06] MEDS: OxyCODONE HCL/ACETAMINOPHEN 5-325 MG TABLET PO PRN ×2 (06:37→10:40)
[2017-10-06 06:39] LABS: BASOPHILS % (AUTO) 0.6 % (0.0-2.0); EOSINOPHILS % (AUTO) 0 % (1.0-6.0); HEMATOCRIT 27.8 % (41-53); HEMOGLOBIN 9.7 g/dL (13.5-17.5); LYMPHOCYTES # (AUTO) 2.1 K/uL (1.0-4.8); LYMPHOCYTES % (AUTO) 29.3 % (22.0-44.0); MEAN CORPUSCULAR HEMOGLOBIN 30.8 pg (26.0-34.0); MEAN CORPUSCULAR HGB CONC 34.7 G/dL (31.0-37.0); MEAN CORPUSCULAR VOLUME 89 fL (80-100); MONOCYTES # (AUTO) 0.9 K/uL (0.1-1.0); MONOCYTES % (AUTO) 12.4 % (2.0-9.0); NEUTROPHILS # (AUTO) 4.1 K/uL (1.8-7.7); NEUTROPHILS % (AUTO) 57.7 % (40.0-70.0); PLATELET COUNT (AUTO) 237 K/uL (150-450); RED BLOOD CELL COUNT(AUTO) 3.14 MIL/uL (4.50-5.90); RED CELL DISTRIBUTION WIDTH 13.1 % (11.5-14.5); WHITE BLOOD COUNT (AUTO) 7.1 K/uL (4.5-11.0)
[2017-10-06 07:26] VITALS: BP 122/72
[2017-10-06 07:50] LABS: ANION GAP 9 mmol/L (8-16); CALCIUM, TOTAL 8.5 mg/dL (8.8-10.5); CARBON DIOXIDE 22 mmol/L (22-29); CHLORIDE 104 mmol/L (98-107); CREATININE 1.22 mg/dL (0.60-1.30); GLOMERULAR FILTR. RATE CALC > 60 mL/min (>60); SODIUM SERUM 135 mmol/L (136-145); UREA NITROGEN, BLOOD 12 mg/dL (7-18)
[2017-10-06] MEDS ORDERED: SODIUM CHLORIDE 0.9% 250 ML IV ONE (08:43)
[2017-10-06] MEDS: VANCOMYCIN HCL 1.5 GM in DEXTROSE 5%-WATER 250 ML IV SCH (08:44)
[2017-10-06] MEDS: PANTOPRAZOLE SODIUM 40 MG/VIAL IVP SCH (08:44)
[2017-10-06 11:49] VITALS: BP 153/77
[2017-10-06 15:14] VITALS: BP 139/92
[2017-10-06 16:04] LABS: VALPROIC ACID 4 mcg/mL (50-100)
[2017-10-06 19:58] VITALS: BP 134/87
[2017-10-06 20:22] LABS: GLUCOSE COMMENT 1 Received Meds; GLUCOSE,POINT OF CARE 298 MG/DL (70-110)
[2017-10-06] MEDS: INSULIN DETEMIR 100 UNITS/ML SQ SCH (21:45)
[2017-10-07] VITALS (8 sets, daily range): BP systolic 106–153; BP diastolic 62–89
[2017-10-07] MEDS: LevETIRAcetam 500 MG in DEXTROSE 5%-WATER 100 ML IV SCH (01:05)
[2017-10-07] MEDS: INSULIN ASPART 100 UNITS/ML SQ PRN ×2 (06:01→20:58)
[2017-10-07 07:44] LABS: ANION GAP 8 mmol/L (8-16); CALCIUM, TOTAL 8.7 mg/dL (8.8-10.5); CARBON DIOXIDE 23 mmol/L (22-29); CHLORIDE 106 mmol/L (98-107); CREATININE 1.06 mg/dL (0.60-1.30); GLOMERULAR FILTR. RATE CALC > 60 mL/min (>60); POTASSIUM 4.5 mmol/L (3.5-5.1); SODIUM SERUM 137 mmol/L (136-145); UREA NITROGEN, BLOOD 15 mg/dL (7-18)
[2017-10-07] MEDS: TOPIRAMATE 100 MG TABLET PO SCH (08:01)
[2017-10-07] MEDS: PANTOPRAZOLE SODIUM 40 MG/VIAL IVP SCH (08:01)
[2017-10-07] MEDS: VANCOMYCIN HCL 1 GM/D5% WATER 200 ML IV SCH ×2 (09:32→20:44)
[2017-10-07] MEDS ORDERED: INSULIN ASPART 100 UNITS/ML SQ ONE (13:30)
[2017-10-07] MEDS: HydrALAZINE HCL 50 MG TABLET PO SCH (20:45)
[2017-10-07] MEDS: ATORVASTATIN CALCIUM 10 MG TABLET PO SCH (20:45)
[2017-10-07] MEDS: DIVALPROEX SODIUM 500 MG DR TABLET PO SCH (20:45)
[2017-10-07] MEDS: LevETIRAcetam 500 MG TABLET PO SCH (20:45)
[2017-10-07] MEDS: CARVEDILOL 6.25 MG TABLET PO SCH (20:45)
[2017-10-07] MEDS: INSULIN DETEMIR 100 UNITS/ML SQ SCH (20:56)
[2017-10-07] MEDS ORDERED: SODIUM CHLORIDE 0.9% 500 ML IV ONE (21:06)
[2017-10-07 22:07] LABS: GLUCOSE,POINT OF CARE 198 MG/DL (70-110)
[2017-10-08] MEDS: INSULIN ASPART 100 UNITS/ML SQ PRN ×4 (05:39→20:08)
[2017-10-08 05:42] VITALS: BP 142/96
[2017-10-08 06:18] LABS: GLUCOSE,POINT OF CARE 203 MG/DL (70-110)
[2017-10-08 06:49] LABS: ANION GAP 10 mmol/L (8-16); CALCIUM, TOTAL 8.5 mg/dL (8.8-10.5); CARBON DIOXIDE 21 mmol/L (22-29); CHLORIDE 104 mmol/L (98-107); GLOMERULAR FILTR. RATE CALC > 60 mL/min (>60); POTASSIUM 4.1 mmol/L (3.5-5.1); SODIUM SERUM 135 mmol/L (136-145); UREA NITROGEN, BLOOD 21 mg/dL (7-18)
[2017-10-08 08:05] VITALS: BP 111/72
[2017-10-08] MEDS: PANTOPRAZOLE SODIUM 40 MG DR TABLET PO SCH (08:37)
[2017-10-08] MEDS: AmLODIPine BESYLATE 10 MG TABLET PO SCH (08:37)
[2017-10-08] MEDS: TOPIRAMATE 100 MG TABLET PO SCH (08:37)
[2017-10-08] MEDS: CARVEDILOL 6.25 MG TABLET PO SCH ×2 (08:37→20:05)
[2017-10-08] MEDS: FOLIC ACID 1 MG TABLET PO SCH (08:37)
[2017-10-08] MEDS: DIVALPROEX SODIUM 500 MG DR TABLET PO SCH ×2 (08:37→20:05)
[2017-10-08] MEDS: LevETIRAcetam 500 MG TABLET PO SCH ×2 (08:37→20:04)
[2017-10-08] MEDS: VANCOMYCIN HCL 1 GM/D5% WATER 200 ML IV SCH ×2 (08:38→20:03)
[2017-10-08] MEDS ORDERED: TOPIRAMATE 100 MG TABLET PO SCH (09:00)
[2017-10-08] MEDS ORDERED: INSULIN GLARGINE,HUM.REC.ANLOG 100 UNITS/ML SQ SCH (09:00)
[2017-10-08] MEDS: HydrALAZINE HCL 50 MG TABLET PO SCH ×3 (09:33→23:43)
[2017-10-08 12:05] VITALS: BP 119/66
[2017-10-08] MEDS: INSULIN DETEMIR 100 UNITS/ML SQ SCH ×2 (12:26→20:08)
[2017-10-08 15:46] LABS: GLUCOSE,POINT OF CARE 467 MG/DL (70-110)
[2017-10-08 16:03] VITALS: BP 93/60
[2017-10-08 18:42] LABS: GLUCOSE,POINT OF CARE 288 MG/DL (70-110)
[2017-10-08 20:00] VITALS: BP 127/74
[2017-10-08] MEDS: ATORVASTATIN CALCIUM 10 MG TABLET PO SCH (20:05)
[2017-10-08 20:22] LABS: GLUCOSE,POINT OF CARE 163 MG/DL (70-110)
[2017-10-08 23:40] VITALS: BP 104/58
[2017-10-09] MEDS: OxyCODONE HCL/ACETAMINOPHEN 5-325 MG TABLET PO PRN ×4 (02:39→23:57)
[2017-10-09 03:06] VITALS: BP 116/74
[2017-10-09 05:57] LABS: GLUCOSE,POINT OF CARE 116 MG/DL (70-110)
[2017-10-09 07:33] LABS: ANION GAP 9 mmol/L (8-16); CALCIUM, TOTAL 8.5 mg/dL (8.8-10.5); CARBON DIOXIDE 22 mmol/L (22-29); CHLORIDE 104 mmol/L (98-107); CREATININE 1.23 mg/dL (0.60-1.30); GLOMERULAR FILTR. RATE CALC > 60 mL/min (>60); POTASSIUM 3.8 mmol/L (3.5-5.1); SODIUM SERUM 135 mmol/L (136-145); UREA NITROGEN, BLOOD 25 mg/dL (7-18)
[2017-10-09 07:35] VITALS: BP 137/77
[2017-10-09] MEDS: VANCOMYCIN HCL 1 GM/D5% WATER 200 ML IV SCH (08:15)
[2017-10-09] MEDS: PANTOPRAZOLE SODIUM 40 MG DR TABLET PO SCH (08:16)
[2017-10-09] MEDS: AmLODIPine BESYLATE 10 MG TABLET PO SCH (08:16)
[2017-10-09] MEDS: LevETIRAcetam 500 MG TABLET PO SCH ×2 (08:16→19:59)
[2017-10-09] MEDS: FOLIC ACID 1 MG TABLET PO SCH (08:16)
[2017-10-09] MEDS: TOPIRAMATE 100 MG TABLET PO SCH (08:16)
[2017-10-09] MEDS: HydrALAZINE HCL 50 MG TABLET PO SCH ×3 (08:16→19:59)
[2017-10-09] MEDS: CARVEDILOL 6.25 MG TABLET PO SCH ×2 (08:17→19:59)
[2017-10-09] MEDS: DIVALPROEX SODIUM 500 MG DR TABLET PO SCH ×2 (08:25→19:59)
[2017-10-09] MEDS: INSULIN DETEMIR 100 UNITS/ML SQ SCH ×2 (09:39→20:13)
[2017-10-09 11:40] VITALS: BP 118/71
[2017-10-09] MEDS: INSULIN ASPART 100 UNITS/ML SQ PRN ×2 (11:57→20:06)
[2017-10-09 12:52] LABS: GLUCOSE,POINT OF CARE 328 MG/DL (70-110)
[2017-10-09 15:20] VITALS: BP 129/72
[2017-10-09 18:13] LABS: GLUCOSE,POINT OF CARE 111 MG/DL (70-110)
[2017-10-09 19:37] VITALS: BP 127/77
[2017-10-09] MEDS: ATORVASTATIN CALCIUM 10 MG TABLET PO SCH (19:59)
[2017-10-09 20:52] LABS: GLUCOSE COMMENT 1 Received Meds; GLUCOSE,POINT OF CARE 164 MG/DL (70-110)
[2017-10-09] MEDS: DEXTROSE 50%-WATER 25 GM/50 ML SYRINGE IVP PRN (22:51)
[2017-10-09 23:14] VITALS: BP 115/71
[2017-10-09 23:42] LABS: GLUCOSE COMMENT 1 Doctor Notified; GLUCOSE,POINT OF CARE 49 MG/DL (70-110)
[2017-10-09 23:42] LABS: GLUCOSE,POINT OF CARE 212 MG/DL (70-110)
[2017-10-10] MEDS: DEXTROSE 50%-WATER 25 GM/50 ML SYRINGE IVP PRN (04:49)
[2017-10-10] MEDS: OxyCODONE HCL/ACETAMINOPHEN 5-325 MG TABLET PO PRN ×2 (04:55→10:55)
[2017-10-10 05:01] VITALS: BP 127/67
[2017-10-10 05:27] LABS: GLUCOSE,POINT OF CARE 181 MG/DL (70-110)
[2017-10-10 05:27] LABS: GLUCOSE COMMENT 1 Juice/Food/D50 Given; GLUCOSE,POINT OF CARE 49 MG/DL (70-110)
[2017-10-10 07:21] LABS: CALCIUM, TOTAL 8.4 mg/dL (8.8-10.5); CREATININE 1.36 mg/dL (0.60-1.30); POTASSIUM 3.8 mmol/L (3.5-5.1)
[2017-10-10] MEDS: CARVEDILOL 6.25 MG TABLET PO SCH (07:45)
[2017-10-10] MEDS: LevETIRAcetam 500 MG TABLET PO SCH (07:45)
[2017-10-10] MEDS: FOLIC ACID 1 MG TABLET PO SCH (07:45)
[2017-10-10] MEDS: HydrALAZINE HCL 50 MG TABLET PO SCH (07:45)
[2017-10-10] MEDS: TOPIRAMATE 100 MG TABLET PO SCH (07:45)
[2017-10-10] MEDS: PANTOPRAZOLE SODIUM 40 MG DR TABLET PO SCH (07:46)
[2017-10-10] MEDS: AmLODIPine BESYLATE 10 MG TABLET PO SCH (07:46)
[2017-10-10] MEDS: DIVALPROEX SODIUM 500 MG DR TABLET PO SCH (07:46)
[2017-10-10 08:00] VITALS: BP 118/64
[2017-10-10] MEDS ORDERED: VANCOMYCIN HCL 1.5 GM in DEXTROSE 5%-WATER 250 ML IV SCH (08:00)
[2017-10-10] MEDS ORDERED: INSULIN DETEMIR 100 UNITS/ML SQ SCH (09:00)
[2017-10-10 11:32] LABS: GLUCOSE,POINT OF CARE 170 MG/DL (70-110)
[2017-10-10] MEDS ORDERED: LEVE500T53 PO (14:03)
[2017-10-10 14:17] VITALS: BP 107/63
[2017-10-13 18:02] LABS: GLUCOSE COMMENT 1 Received Meds; GLUCOSE,POINT OF CARE 161 MG/DL (70-110)
[2017-10-14 23:53] LABS: GLUCOSE COMMENT 1 Received Meds; GLUCOSE,POINT OF CARE 324 MG/DL (70-110)
[2017-10-14 23:53] LABS: GLUCOSE COMMENT 1 Received Meds; GLUCOSE,POINT OF CARE 376 MG/DL (70-110)
[2017-10-14 23:58] LABS: GLUCOSE COMMENT 1 Doctor Notified; GLUCOSE COMMENT 2 Received Meds; GLUCOSE,POINT OF CARE 458 MG/DL (70-110)
[2017-10-14 23:58] LABS: GLUCOSE COMMENT 1 Received Meds; GLUCOSE,POINT OF CARE 351 MG/DL (70-110)
[2017-10-14 23:58] LABS: GLUCOSE,POINT OF CARE 193 MG/DL (70-110)
== END 2017-10-10 15:55 | disposition home or self-care (01) | DRG 720 ==
LOC: EMS 07:38 → ICU 11:01 → 5S 10-05 17:50 → 4E 10-07 17:30 → 6N 10-10 14:07
PROVIDERS: ADMIT Internal Medicine; ATTEND Internal Medicine
PROC: 5A1945Z Respiratory Ventilation, 24-96 Consecutive Hours (ICD-10-PCS; principal; 2017-10-02)
PROC: 0BH17EZ Insertion of Endotracheal Airway into Trachea, Via Natural or Artificial Opening (ICD-10-PCS; 2017-10-02)
DX: A41.9 Sepsis, unspecified organism (principal); J96.00 Acute respiratory failure, unspecified whether with hypoxia or hypercapnia; G93.41 Metabolic encephalopathy; E87.4 Mixed disorder of acid-base balance; F19.10 Other psychoactive substance abuse, uncomplicated; I10 Essential (primary) hypertension; B95.4 Other streptococcus as the cause of diseases classified elsewhere; D64.9 Anemia, unspecified; F17.210 Nicotine dependence, cigarettes, uncomplicated; E11.319 Type 2 diabetes mellitus with unspecified diabetic retinopathy without macular edema; F15.10 Other stimulant abuse, uncomplicated; G40.909 Epilepsy, unspecified, not intractable, without status epilepticus; F10.129 Alcohol abuse with intoxication, unspecified; Z88.1 Allergy status to other antibiotic agents; Z88.8 Allergy status to other drugs, medicaments and biological substances; Z89.511 Acquired absence of right leg below knee; Z82.49 Family history of ischemic heart disease and other diseases of the circulatory system; Z83.3 Family history of diabetes mellitus; Z79.4 Long term (current) use of insulin; Z79.899 Other long term (current) drug therapy
CPT/HCPCS: 31500; 70450; 82805; 82962; 83605; 84145; 87040; 87070; 87081; 87086; 87205; 92610; 93005; 93306; 94002; 94003; 94640; 95816; 96361; 96374; 96375; 97162; 97530; 99291; C9113; G0480; G0481; J0330; J0712; J1815; J1956; J2060; J2175; J2704; J3010; J3370; J3480; J3490; J7040; J7050; J7060

== ENCOUNTER 2017-10-13 02:01 | Inpatient (IN) | payer MEDICAID ==
[~2017-10-13] VITALS: Ht 170.2 cm; Wt 60.8 kg
[~2017-10-13 02:01] MED LIST changes: +AMLO-512 PO; +ATOR10TA84 PO; +DIVA500T35 PO; +FOLI1 PO; +HYDR-2924 PO; -LACT30L PO; +TOPI100T37 PO
[2017-10-13] MEDS ORDERED: SODIUM CHLORIDE 0.9% 2,000 ML IV ONE (02:29)
[2017-10-13 03:09] LABS: BASOPHILS % (AUTO) 0.2 % (0.0-2.0); EOSINOPHILS % (AUTO) 0 % (1.0-6.0); HEMATOCRIT 29.3 % (41-53); HEMOGLOBIN 10.1 g/dL (13.5-17.5); LYMPHOCYTES # (AUTO) 1.3 K/uL (1.0-4.8); LYMPHOCYTES % (AUTO) 6.9 % (22.0-44.0); MEAN CORPUSCULAR HEMOGLOBIN 30.4 pg (26.0-34.0); MEAN CORPUSCULAR HGB CONC 34.3 G/dL (31.0-37.0); MEAN CORPUSCULAR VOLUME 89 fL (80-100); MONOCYTES # (AUTO) 0.7 K/uL (0.1-1.0); MONOCYTES % (AUTO) 3.9 % (2.0-9.0); NEUTROPHILS # (AUTO) 16.4 K/uL (1.8-7.7); PLATELET COUNT (AUTO) 413 K/uL (150-450); RED BLOOD CELL COUNT(AUTO) 3.31 MIL/uL (4.50-5.90); RED CELL DISTRIBUTION WIDTH 13.8 % (11.5-14.5); WHITE BLOOD COUNT (AUTO) 18.5 K/uL (4.5-11.0)
[2017-10-13 03:20] LABS: CALCIUM, TOTAL 8.6 mg/dL (8.8-10.5); CREATININE 1.42 mg/dL (0.60-1.30); POTASSIUM 4.2 mmol/L (3.5-5.1)
[2017-10-13 03:26] LABS: ALBUMIN 2.8 g/dL (3.4-5.0); BILIRUBIN,TOTAL 0.2 mg/dL (0.1-1.0); TOTAL PROTEIN, SERUM 6.8 g/dL (6.4-8.2)
[2017-10-13 04:12] LABS: GLUCOSE,POINT OF CARE 247 MG/DL (70-110)
[2017-10-13] MEDS ORDERED: VANCOMYCIN HCL 1 GM/D5% WATER 200 ML IV ONE (04:45)
[2017-10-13] MEDS ORDERED: ONDANSETRON HCL 4 MG/2 ML VIAL IVP PRN ×2 (05:30→08:45)
[2017-10-13] MEDS ORDERED: ACETAMINOPHEN 325 MG TABLET PO PRN ×2 (05:30→08:45)
[2017-10-13] MEDS ORDERED: 0.9% SODIUM CHLORIDE 10 ML SYRINGE IVP PRN (05:30)
[2017-10-13 05:33] LABS: GLUCOSE,POINT OF CARE 174 MG/DL (70-110)
[2017-10-13 05:40] LABS: APPEARANCE,URINE CLOUDY (CLEAR); GLUCOSE, URINE (UA) NEGATIVE (NEGATIVE); KETONES,URINE NEGATIVE (NEGATIVE); LEUKOCYTE ESTERASE ,URINE MODERATE (NEGATIVE); OCCULT BLOOD,URINE NEGATIVE (NEGATIVE); PROTEIN,URINE NEGATIVE (NEGATIVE)
[2017-10-13] MEDS ORDERED: SODIUM CHLORIDE 0.9% 1,000 ML IV ONE (05:45)
[2017-10-13 05:46] LABS: ADD UA MICROSCOPIC YES
[2017-10-13 05:53] LABS: RBC,URINE 0-2 /HPF (0-2)
[2017-10-13 05:54] LABS: SQUAMOUS EPITHELIAL CELL,UR Many /LPF (None Seen)
[2017-10-13 07:56] VITALS: BP 109/62
[2017-10-13] MEDS ORDERED: DEXTROSE 50%-WATER 25 GM/50 ML SYRINGE IVP PRN (08:45)
[2017-10-13] MEDS: AmLODIPine BESYLATE 10 MG TABLET PO SCH (09:00)
[2017-10-13] MEDS: DIVALPROEX SODIUM 500 MG DR TABLET PO SCH ×2 (09:32→20:36)
[2017-10-13] MEDS: FOLIC ACID 1 MG TABLET PO SCH (09:32)
[2017-10-13] MEDS: LevETIRAcetam 500 MG TABLET PO SCH ×2 (09:32→20:36)
[2017-10-13] MEDS: CARVEDILOL 6.25 MG TABLET PO SCH ×2 (09:32→20:36)
[2017-10-13] MEDS: TOPIRAMATE 100 MG TABLET PO SCH (09:32)
[2017-10-13] MEDS: PANTOPRAZOLE SODIUM 40 MG DR TABLET PO SCH (09:32)
[2017-10-13] MEDS: HEPARIN SODIUM,PORCINE 5,000 UNITS/ML VIAL SQ SCH ×2 (09:32→20:36)
[2017-10-13 11:35] VITALS: BP 121/63
[2017-10-13] MEDS ORDERED: -PHARMACY VACCINE NOTE- MISC ONE ×2 (15:15)
[2017-10-13] MEDS ORDERED: INFLUENZA VIRUS VACCINE QVS 2017-18 (3YR+)/PF 60 MCG/0.5 ML SYRINGE IM ONE (15:15)
[2017-10-13] MEDS ORDERED: LORazepam 2 MG/ML VIAL IVP PRN (15:30)
[2017-10-13 15:39] VITALS: BP 134/79
[2017-10-13] MEDS: ChlordiazePOXIDE HCL 25 MG CAPSULE PO SCH ×2 (16:14→20:36)
[2017-10-13] MEDS: HYDROCODONE/ACETAMINOPHEN 5-325 MG TABLET PO PRN ×2 (16:14→22:02)
[2017-10-13 16:22] LABS: GLUCOSE,POINT OF CARE 166 MG/DL (70-110)
[2017-10-13] MEDS: INSULIN ASPART 100 UNITS/ML SQ PRN ×2 (17:36→20:37)
[2017-10-13 19:19] VITALS: BP 115/60
[2017-10-13] MEDS: ATORVASTATIN CALCIUM 10 MG TABLET PO SCH (20:36)
[2017-10-13 23:36] LABS: GLUCOSE,POINT OF CARE 351 MG/DL (70-110)
[2017-10-13 23:37] LABS: GLUCOSE,POINT OF CARE 155 MG/DL (70-110)
[2017-10-13 23:52] VITALS: BP 119/66
[2017-10-14] MEDS: HYDROCODONE/ACETAMINOPHEN 5-325 MG TABLET PO PRN ×4 (03:59→22:29)
[2017-10-14 04:17] LABS: GLUCOSE COMMENT 1 Doctor Notified; GLUCOSE COMMENT 2 Received Meds; GLUCOSE,POINT OF CARE 550 MG/DL (70-110)
[2017-10-14 04:29] VITALS: BP 119/63
[2017-10-14 06:52] LABS: GLUCOSE,POINT OF CARE 341 MG/DL (70-110)
[2017-10-14] MEDS: VANCOMYCIN HCL 1.25 GM in DEXTROSE 5%-WATER 250 ML IV SCH (08:01)
[2017-10-14] MEDS: TOPIRAMATE 100 MG TABLET PO SCH (08:01)
[2017-10-14] MEDS: LevETIRAcetam 500 MG TABLET PO SCH (08:02)
[2017-10-14] MEDS: CARVEDILOL 6.25 MG TABLET PO SCH ×2 (08:02→22:30)
[2017-10-14] MEDS: HEPARIN SODIUM,PORCINE 5,000 UNITS/ML VIAL SQ SCH ×2 (08:02→20:00)
[2017-10-14] MEDS: DIVALPROEX SODIUM 500 MG DR TABLET PO SCH ×2 (08:02→20:00)
[2017-10-14] MEDS: FOLIC ACID 1 MG TABLET PO SCH (08:02)
[2017-10-14] MEDS: ChlordiazePOXIDE HCL 25 MG CAPSULE PO SCH ×3 (08:02→20:00)
[2017-10-14] MEDS: PANTOPRAZOLE SODIUM 40 MG DR TABLET PO SCH (08:02)
[2017-10-14] MEDS: AmLODIPine BESYLATE 10 MG TABLET PO SCH (08:02)
[2017-10-14 08:04] LABS: CALCIUM, TOTAL 8.5 mg/dL (8.8-10.5); CREATININE 1.46 mg/dL (0.60-1.30); POTASSIUM 4.4 mmol/L (3.5-5.1)
[2017-10-14 11:38] VITALS: BP 114/67
[2017-10-14 11:42] LABS: GLUCOSE COMMENT 1 Received Meds; GLUCOSE,POINT OF CARE 489 MG/DL (70-110)
[2017-10-14] MEDS ORDERED: 0.9% SODIUM CHLORIDE 10 ML SYRINGE IVP PRN (11:45)
[2017-10-14] MEDS: INSULIN ASPART 100 UNITS/ML SQ PRN ×3 (11:49→20:44)
[2017-10-14 12:30] LABS: CALCIUM, TOTAL 8.4 mg/dL (8.8-10.5); CREATININE 1.42 mg/dL (0.60-1.30); POTASSIUM 5.2 mmol/L (3.5-5.1)
[2017-10-14] MEDS: CefTRIAXone 1 GM/DEXTROSE 50 ML IV SCH (13:10)
[2017-10-14 16:11] VITALS: BP 120/76
[2017-10-14 17:08] LABS: GLUCOSE COMMENT 1 Received Meds; GLUCOSE,POINT OF CARE 397 MG/DL (70-110)
[2017-10-14 19:45] VITALS: BP 110/64
[2017-10-14] MEDS: ATORVASTATIN CALCIUM 10 MG TABLET PO SCH (20:00)
[2017-10-14] MEDS: INSULIN DETEMIR 100 UNITS/ML SQ SCH (20:44)
[2017-10-14 22:30] VITALS: BP 136/78
[2017-10-14 23:47] LABS: GLUCOSE,POINT OF CARE 234 MG/DL (70-110)
[2017-10-15 02:43] LABS: GLUCOSE,POINT OF CARE 165 MG/DL (70-110)
[2017-10-15 04:38] VITALS: BP 124/74
[2017-10-15] MEDS: HYDROCODONE/ACETAMINOPHEN 5-325 MG TABLET PO PRN ×3 (05:03→19:03)
[2017-10-15 06:12] LABS: GLUCOSE,POINT OF CARE 219 MG/DL (70-110)
[2017-10-15] MEDS: INSULIN ASPART 100 UNITS/ML SQ PRN ×3 (06:26→20:24)
[2017-10-15 07:55] LABS: BASOPHILS % (AUTO) 0.9 % (0.0-2.0); HEMATOCRIT 29.7 % (41-53); HEMOGLOBIN 10.2 g/dL (13.5-17.5); LYMPHOCYTES % (AUTO) 43.7 % (22.0-44.0); MEAN CORPUSCULAR HEMOGLOBIN 30.6 pg (26.0-34.0); MEAN CORPUSCULAR HGB CONC 34.4 G/dL (31.0-37.0); MEAN CORPUSCULAR VOLUME 89 fL (80-100); MONOCYTES # (AUTO) 0.3 K/uL (0.1-1.0); MONOCYTES % (AUTO) 6.8 % (2.0-9.0); NEUTROPHILS # (AUTO) 2.1 K/uL (1.8-7.7); NEUTROPHILS % (AUTO) 46.6 % (40.0-70.0); PLATELET COUNT (AUTO) 359 K/uL (150-450); RED BLOOD CELL COUNT(AUTO) 3.34 MIL/uL (4.50-5.90); RED CELL DISTRIBUTION WIDTH 14.1 % (11.5-14.5); WHITE BLOOD COUNT (AUTO) 4.6 K/uL (4.5-11.0)
[2017-10-15 08:02] LABS: HEMOGLOBIN A1C 10.2 % (4.5-6.2)
[2017-10-15 08:03] LABS: ANION GAP 12 mmol/L (8-16); CALCIUM, TOTAL 8.7 mg/dL (8.8-10.5); CARBON DIOXIDE 21 mmol/L (22-29); CHLORIDE 106 mmol/L (98-107); CREATININE 1.26 mg/dL (0.60-1.30); GLOMERULAR FILTR. RATE CALC > 60 mL/min (>60); POTASSIUM 4.5 mmol/L (3.5-5.1); SODIUM SERUM 139 mmol/L (136-145); UREA NITROGEN, BLOOD 27 mg/dL (7-18)
[2017-10-15 08:17] VITALS: BP 108/50
[2017-10-15] MEDS: VANCOMYCIN HCL 1.25 GM in DEXTROSE 5%-WATER 250 ML IV SCH (08:54)
[2017-10-15] MEDS: AmLODIPine BESYLATE 10 MG TABLET PO SCH (08:55)
[2017-10-15] MEDS: HEPARIN SODIUM,PORCINE 5,000 UNITS/ML VIAL SQ SCH ×2 (08:55→20:23)
[2017-10-15] MEDS: ChlordiazePOXIDE HCL 25 MG CAPSULE PO SCH (08:55)
[2017-10-15] MEDS: DIVALPROEX SODIUM 500 MG DR TABLET PO SCH ×2 (08:55→20:23)
[2017-10-15] MEDS: FOLIC ACID 1 MG TABLET PO SCH (08:55)
[2017-10-15] MEDS: PANTOPRAZOLE SODIUM 40 MG DR TABLET PO SCH (08:55)
[2017-10-15] MEDS: CARVEDILOL 6.25 MG TABLET PO SCH ×3 (08:55→20:23)
[2017-10-15] MEDS: TOPIRAMATE 100 MG TABLET PO SCH (08:56)
[2017-10-15] MEDS: INSULIN DETEMIR 100 UNITS/ML SQ SCH ×2 (08:58→20:24)
[2017-10-15 11:12] VITALS: BP 132/71
[2017-10-15] MEDS: CefTRIAXone 1 GM/DEXTROSE 50 ML IV SCH (13:20)
[2017-10-15 16:44] VITALS: BP 106/70
[2017-10-15 17:37] LABS: GLUCOSE COMMENT 1 Received Meds; GLUCOSE,POINT OF CARE 359 MG/DL (70-110)
[2017-10-15 19:42] LABS: GLUCOSE,POINT OF CARE 61 MG/DL (70-110)
[2017-10-15 19:55] VITALS: BP 126/80
[2017-10-15] MEDS: ATORVASTATIN CALCIUM 10 MG TABLET PO SCH (20:23)
[2017-10-15 21:53] LABS: GLUCOSE,POINT OF CARE 233 MG/DL (70-110)
[2017-10-15 23:52] VITALS: BP 102/61
[2017-10-16 03:58] VITALS: BP 113/63
[2017-10-16] MEDS: HYDROCODONE/ACETAMINOPHEN 5-325 MG TABLET PO PRN ×3 (04:01→17:17)
[2017-10-16 06:47] LABS: GLUCOSE,POINT OF CARE 135 MG/DL (70-110)
[2017-10-16 06:56] LABS: ANION GAP 11 mmol/L (8-16); CALCIUM, TOTAL 8.5 mg/dL (8.8-10.5); CARBON DIOXIDE 21 mmol/L (22-29); CHLORIDE 109 mmol/L (98-107); CREATININE 1.25 mg/dL (0.60-1.30); GLOMERULAR FILTR. RATE CALC > 60 mL/min (>60); POTASSIUM 4.4 mmol/L (3.5-5.1); SODIUM SERUM 141 mmol/L (136-145); UREA NITROGEN, BLOOD 25 mg/dL (7-18)
[2017-10-16 07:30] VITALS: BP 150/84
[2017-10-16] MEDS: TOPIRAMATE 100 MG TABLET PO SCH (08:38)
[2017-10-16] MEDS: FOLIC ACID 1 MG TABLET PO SCH (08:38)
[2017-10-16] MEDS: AmLODIPine BESYLATE 10 MG TABLET PO SCH (08:38)
[2017-10-16] MEDS: HEPARIN SODIUM,PORCINE 5,000 UNITS/ML VIAL SQ SCH (08:38)
[2017-10-16] MEDS: PANTOPRAZOLE SODIUM 40 MG DR TABLET PO SCH (08:38)
[2017-10-16] MEDS: DIVALPROEX SODIUM 500 MG DR TABLET PO SCH (08:38)
[2017-10-16] MEDS: CARVEDILOL 6.25 MG TABLET PO SCH (08:38)
[2017-10-16] MEDS: INSULIN DETEMIR 100 UNITS/ML SQ SCH (08:41)
[2017-10-16] MEDS: VANCOMYCIN HCL 1.25 GM in DEXTROSE 5%-WATER 250 ML IV SCH (08:42)
[2017-10-16 11:31] VITALS: BP 124/78
[2017-10-16] MEDS: INSULIN ASPART 100 UNITS/ML SQ PRN (11:54)
[2017-10-16] MEDS: CefTRIAXone 1 GM/DEXTROSE 50 ML IV SCH (13:21)
[2017-10-16] MEDS ORDERED: CEFX1I IV (15:08)
[2017-10-16 16:32] LABS: GLUCOSE COMMENT 1 Received Meds; GLUCOSE,POINT OF CARE 304 MG/DL (70-110)
[2017-10-16 16:32] LABS: GLUCOSE COMMENT 1 Repeated; GLUCOSE COMMENT 2 Juice/Food/D50 Given; GLUCOSE,POINT OF CARE 25 MG/DL (70-110)
[2017-10-16 16:37] VITALS: BP 120/76
[2017-10-16 20:17] LABS: GLUCOSE,POINT OF CARE 142 MG/DL (70-110)
[2017-10-16 20:17] LABS: GLUCOSE,POINT OF CARE 125 MG/DL (70-110)
== END 2017-10-16 19:05 | DRG 720 ==
LOC: EMS 02:03 → 6N 05:56
PROVIDERS: ADMIT Family Medicine; ATTEND Family Medicine
PROC: 0T9B70Z Drainage of Bladder with Drainage Device, Via Natural or Artificial Opening (ICD-10-PCS; principal; 2017-10-13)
DX: A41.9 Sepsis, unspecified organism (principal); G93.40 Encephalopathy, unspecified; E46 Unspecified protein-calorie malnutrition; E11.22 Type 2 diabetes mellitus with diabetic chronic kidney disease; E11.649 Type 2 diabetes mellitus with hypoglycemia without coma; N39.0 Urinary tract infection, site not specified; F10.239 Alcohol dependence with withdrawal, unspecified; N18.9 Chronic kidney disease, unspecified; I12.9 Hypertensive chronic kidney disease with stage 1 through stage 4 chronic kidney disease, or unspecified chronic kidney disease; Z89.511 Acquired absence of right leg below knee; Z88.1 Allergy status to other antibiotic agents; Z88.8 Allergy status to other drugs, medicaments and biological substances; Z79.4 Long term (current) use of insulin; Z79.899 Other long term (current) drug therapy; Z68.21 Body mass index [BMI] 21.0-21.9, adult
CPT/HCPCS: 70450; 80307; 82962; 83036; 83605; 83735; 87040; 87081; 87086; 90471; 96361; 96374; 97163; 97165; 97530; 99291; J0696; J1644; J3370; J7060

== ENCOUNTER 2017-10-27 19:21 | Inpatient (IN) | payer MEDICAID ==
[~2017-10-27] VITALS: Ht 170.2 cm; Wt 66.9 kg
[~2017-10-27 19:21] MED LIST changes: +CEFX1I IV
[2017-10-27] MEDS ORDERED: SODIUM CHLORIDE 0.9% 1,000 ML IV ONE ×2 (19:45)
[2017-10-27] MEDS ORDERED: INSULIN REGULAR, HUMAN 100 UNITS/ML IVP ONE (19:45)
[2017-10-27 20:11] LABS: BASOPHILS % (AUTO) 0.1 % (0.0-2.0); EOSINOPHILS % (AUTO) 0 % (1.0-6.0); HEMATOCRIT 30.9 % (41-53); HEMOGLOBIN 9.4 g/dL (13.5-17.5); LYMPHOCYTES # (AUTO) 1.2 K/uL (1.0-4.8); LYMPHOCYTES % (AUTO) 11.1 % (22.0-44.0); MEAN CORPUSCULAR HEMOGLOBIN 30.4 pg (26.0-34.0); MEAN CORPUSCULAR HGB CONC 30.3 G/dL (31.0-37.0); MEAN CORPUSCULAR VOLUME 100 fL (80-100); MONOCYTES # (AUTO) 1.1 K/uL (0.1-1.0); MONOCYTES % (AUTO) 9.5 % (2.0-9.0); NEUTROPHILS # (AUTO) 8.8 K/uL (1.8-7.7); NEUTROPHILS % (AUTO) 79.3 % (40.0-70.0); PLATELET COUNT (AUTO) 238 K/uL (150-450); RED BLOOD CELL COUNT(AUTO) 3.09 MIL/uL (4.50-5.90); RED CELL DISTRIBUTION WIDTH 15.5 % (11.5-14.5); WHITE BLOOD COUNT (AUTO) 11.1 K/uL (4.5-11.0)
[2017-10-27 20:30] LABS: APPEARANCE,URINE CLEAR (CLEAR); GLUCOSE, URINE (UA) >=1000 mg/dL (NEGATIVE); KETONES,URINE 40 mg/dL (NEGATIVE); LEUKOCYTE ESTERASE ,URINE NEGATIVE (NEGATIVE); OCCULT BLOOD,URINE NEGATIVE (NEGATIVE); PH,URINE 5.5 (5.0-8.0); PROTEIN,URINE NEGATIVE (NEGATIVE)
[2017-10-27 20:33] LABS: ADD UA MICROSCOPIC YES
[2017-10-27 20:38] LABS: ALANINE AMINOTRANSFERASE 60 U/L (12-78); ALBUMIN 3.3 g/dL (3.4-5.0); ANION GAP 27 mmol/L (8-16); ASPARTATE AMINOTRANSFERASE 73 U/L (15-37); BILIRUBIN,TOTAL 0.5 mg/dL (0.1-1.0); CALCIUM, TOTAL 7.9 mg/dL (8.8-10.5); CHLORIDE 92 mmol/L (98-107); CREATININE 3.66 mg/dL (0.60-1.30); GLOMERULAR FILTR. RATE CALC 18 mL/min (>60); SODIUM SERUM 125 mmol/L (136-145); TOTAL PROTEIN, SERUM 7.4 g/dL (6.4-8.2); UREA NITROGEN, BLOOD 73 mg/dL (7-18); VALPROIC ACID 27 mcg/mL (50-100)
[2017-10-27 20:44] LABS: CARBON DIOXIDE 6 mmol/L (22-29); POTASSIUM 8.1 mmol/L (3.5-5.1)
[2017-10-27 20:48] LABS: GLUCOSE COMMENT 2 Repeated; GLUCOSE,POINT OF CARE > 600 MG/DL (70-110)
[2017-10-27 20:49] LABS: RBC,URINE 0-2 /HPF (0-2); SQUAMOUS EPITHELIAL CELL,UR Few /LPF (None Seen); WBC,URINE 0-2 /HPF (0-5)
[2017-10-27] MEDS ORDERED: SODIUM BICARBONATE [ADULT] 8.4% 50 MEQ/50 ML SYRINGE IVP ONE ×2 (21:00)
[2017-10-27 21:36] LABS: ABG A-A DIFF O2 19.4 mmHg (10-20.0); ABG BASE EXCESS -18.7 mmol/L (-2.0-3.0); ABG HCO3 11.3 mmol/L (22.0-26.0); ABG PCO2 22 mmHg (35-45); ABG PH 7.222 (7.35-7.450); TEMPERATURE, FAHRENHEIT, BG 98.6 FAHREN (96.0-98.6)
[2017-10-27 21:37] LABS: ALLEN TEST, BLOOD GAS Positive
[2017-10-27 21:38] LABS: RBC MORPHOLOGY COMMENT ABNORMAL RBC MORPH
[2017-10-27] MEDS ORDERED: SODIUM CHLORIDE 0.45% 1,000 ML IV PRN (21:40)
[2017-10-27] MEDS ORDERED: DEXTROSE 5%-0.45% SODIUM CHL 1,000 ML IV PRN (21:40)
[2017-10-27] MEDS ORDERED: SODIUM CHLORIDE 0.9% 1,000 ML IV SCH (21:40)
[2017-10-27] MEDS ORDERED: POTASSIUM CHL 20 MEQ/0.45% NS 1,000 ML IV PRN (21:40)
[2017-10-27 21:57] LABS: GLUCOSE COMMENT 1 Doctor Notified; GLUCOSE COMMENT 2 Repeated; GLUCOSE,POINT OF CARE > 600 MG/DL (70-110)
[2017-10-27 22:14] LABS: ANION GAP 24 mmol/L (8-16); CALCIUM, TOTAL 7.8 mg/dL (8.8-10.5); CARBON DIOXIDE 11 mmol/L (22-29); CHLORIDE 99 mmol/L (98-107); CREATININE 3.77 mg/dL (0.60-1.30); GLOMERULAR FILTR. RATE CALC 17 mL/min (>60); POTASSIUM 4.9 mmol/L (3.5-5.1); SODIUM SERUM 134 mmol/L (136-145); UREA NITROGEN, BLOOD 77 mg/dL (7-18)
[2017-10-27] MEDS: INSULIN REGULAR, HUMAN 100 UNITS in SODIUM CHLORIDE 0.9% 99 ML IV PRN ×4 (22:16→22:58)
[2017-10-27 22:20] LABS: OSMOLALITY 393 mOS/kg (270-310)
[2017-10-27 22:58] LABS: GLUCOSE COMMENT 1 Doctor Notified; GLUCOSE,POINT OF CARE > 600 MG/DL (70-110)
[2017-10-27] MEDS ORDERED: 0.9% SODIUM CHLORIDE 10 ML SYRINGE IVP PRN (23:15)
[2017-10-27] MEDS ORDERED: ACETAMINOPHEN 325 MG TABLET PO PRN (23:15)
[2017-10-28] VITALS (9 sets, daily range): BP systolic 113–157; BP diastolic 64–109
[2017-10-28] MEDS: INSULIN REGULAR, HUMAN 100 UNITS/ML IVP PRN ×7 (00:30→06:18)
[2017-10-28 01:33] LABS: GLUCOSE COMMENT 1 Received Meds; GLUCOSE,POINT OF CARE > 600 MG/DL (70-110)
[2017-10-28 01:33] LABS: GLUCOSE COMMENT 1 Received Meds; GLUCOSE,POINT OF CARE > 600 MG/DL (70-110)
[2017-10-28 02:50] LABS: CALCIUM, TOTAL 7.6 mg/dL (8.8-10.5); CREATININE 3.64 mg/dL (0.60-1.30); POTASSIUM 3.4 mmol/L (3.5-5.1)
[2017-10-28] MEDS: POTASSIUM CHLORIDE 40 MEQ in SODIUM CHLORIDE 0.45% 1,000 ML IV PRN ×3 (03:32→12:30)
[2017-10-28 04:17] LABS: GLUCOSE COMMENT 1 Received Meds; GLUCOSE COMMENT 2 Doctor Notified; GLUCOSE,POINT OF CARE 511 MG/DL (70-110)
[2017-10-28] MEDS: INSULIN REGULAR, HUMAN 100 UNITS in SODIUM CHLORIDE 0.9% 99 ML IV PRN ×2 (04:21)
[2017-10-28 05:28] LABS: BASOPHILS # (AUTO) 0.01 K/uL (0.00-0.20); BASOPHILS % (AUTO) 0.2 % (0.0-2.0); EOSINOPHILS % (AUTO) 0.02 % (1.0-6.0); HEMATOCRIT 24.4 % (41-53); HEMOGLOBIN 8.4 g/dL (13.5-17.5); LYMPHOCYTES # (AUTO) 0.7 K/uL (1.0-4.8); LYMPHOCYTES % (AUTO) 9.1 % (22.0-44.0); MEAN CORPUSCULAR HEMOGLOBIN 30.6 pg (26.0-34.0); MEAN CORPUSCULAR HGB CONC 34.3 G/dL (31.0-37.0); MEAN CORPUSCULAR VOLUME 89 fL (80-100); MONOCYTES # (AUTO) 0.5 K/uL (0.1-1.0); MONOCYTES % (AUTO) 6.2 % (2.0-9.0); NEUTROPHILS # (AUTO) 6.1 K/uL (1.8-7.7); NEUTROPHILS % (AUTO) 84.5 % (40.0-70.0); PLATELET COUNT (AUTO) 199 K/uL (150-450); RED BLOOD CELL COUNT(AUTO) 2.74 MIL/uL (4.50-5.90); RED CELL DISTRIBUTION WIDTH 14.1 % (11.5-14.5); WHITE BLOOD COUNT (AUTO) 7.3 K/uL (4.5-11.0)
[2017-10-28 05:47] LABS: BILIRUBIN,TOTAL 0.2 mg/dL (0.1-1.0); CALCIUM, TOTAL 7.8 mg/dL (8.8-10.5); CREATININE 3.12 mg/dL (0.60-1.30); MAGNESIUM 2.7 mg/dL (1.80-2.40); PHOSPHORUS 2.3 mg/dL (2.5-4.9); POTASSIUM 3.2 mmol/L (3.5-5.1); TOTAL PROTEIN, SERUM 6.4 g/dL (6.4-8.2)
[2017-10-28] MEDS ORDERED: SODIUM CHLORIDE 0.9% 250 ML IV ONE (06:36)
[2017-10-28] MEDS: PROMETHAZINE HCL/CODEINE 6.25-10MG/5ML SYRUP UDCUP PO PRN ×4 (07:04→20:38)
[2017-10-28] MEDS: DEXTROSE 50%-WATER 25 GM/50 ML SYRINGE IVP PRN ×2 (09:10→10:41)
[2017-10-28 09:12] LABS: GLUCOSE COMMENT 1 Received Meds; GLUCOSE COMMENT 2 Doctor Notified; GLUCOSE,POINT OF CARE 439 MG/DL (70-110)
[2017-10-28 09:12] LABS: GLUCOSE COMMENT 1 Received Meds; GLUCOSE,POINT OF CARE 280 MG/DL (70-110)
[2017-10-28 09:13] LABS: GLUCOSE COMMENT 1 Received Meds; GLUCOSE,POINT OF CARE 211 MG/DL (70-110)
[2017-10-28 09:17] LABS: GLUCOSE COMMENT 1 Received Meds; GLUCOSE,POINT OF CARE > 600 MG/DL (70-110)
[2017-10-28 09:17] LABS: GLUCOSE COMMENT 1 Received Meds; GLUCOSE,POINT OF CARE 105 MG/DL (70-110)
[2017-10-28 09:17] LABS: GLUCOSE COMMENT 1 Received Meds; GLUCOSE,POINT OF CARE > 600 MG/DL (70-110)
[2017-10-28 09:17] LABS: GLUCOSE COMMENT 1 Received Meds; GLUCOSE COMMENT 2 Doctor Notified; GLUCOSE,POINT OF CARE 68 MG/DL (70-110)
[2017-10-28 10:51] LABS: CALCIUM, TOTAL 7.9 mg/dL (8.8-10.5); CREATININE 2.25 mg/dL (0.60-1.30); POTASSIUM 3.9 mmol/L (3.5-5.1)
[2017-10-28] MEDS ORDERED: DEXTROSE 50%-WATER 25 GM/50 ML SYRINGE IVP PRN (11:30)
[2017-10-28 11:47] LABS: GLUCOSE COMMENT 1 Doctor Notified; GLUCOSE COMMENT 2 Received Meds; GLUCOSE,POINT OF CARE 112 MG/DL (70-110)
[2017-10-28 11:47] LABS: GLUCOSE,POINT OF CARE 140 MG/DL (70-110)
[2017-10-28 11:47] LABS: GLUCOSE COMMENT 1 Doctor Notified; GLUCOSE COMMENT 2 Received Meds; GLUCOSE,POINT OF CARE 49 MG/DL (70-110)
[2017-10-28 11:47] LABS: GLUCOSE,POINT OF CARE 75 MG/DL (70-110)
[2017-10-28 11:47] LABS: GLUCOSE COMMENT 1 Received Meds; GLUCOSE,POINT OF CARE 124 MG/DL (70-110)
[2017-10-28] MEDS: HYDROCODONE/ACETAMINOPHEN 5-325 MG TABLET PO PRN ×3 (12:09→20:38)
[2017-10-28] MEDS: TOPIRAMATE 100 MG TABLET PO SCH (12:11)
[2017-10-28] MEDS: LevETIRAcetam 500 MG TABLET PO SCH ×2 (12:11→20:37)
[2017-10-28 12:32] LABS: GLUCOSE COMMENT 1 Juice/Food/D50 Given; GLUCOSE,POINT OF CARE 85 MG/DL (70-110)
[2017-10-28 14:03] LABS: GLUCOSE,POINT OF CARE 124 MG/DL (70-110)
[2017-10-28] MEDS: DIVALPROEX SODIUM 500 MG ER TABLET PO SCH ×2 (14:13→20:37)
[2017-10-28 14:36] LABS: CALCIUM, TOTAL 7.9 mg/dL (8.8-10.5); CREATININE 1.95 mg/dL (0.60-1.30); POTASSIUM 4.8 mmol/L (3.5-5.1)
[2017-10-28 15:33] LABS: INFLUENZA TYPE B NEGATIVE FOR TYPE B (NEGATIVE)
[2017-10-28] MEDS: SODIUM CHLORIDE 0.45% 1,000 ML IV SCH (16:11)
[2017-10-28] MEDS: INSULIN REGULAR, HUMAN 100 UNITS/ML SQ PRN (17:50)
[2017-10-28] MEDS: OSELTAMIVIR PHOSPHATE 30 MG CAPSULE PO SCH (20:37)
[2017-10-28] MEDS: INSULIN GLARGINE,HUM.REC.ANLOG 100 UNITS/ML SQ SCH (22:11)
[2017-10-29] VITALS (10 sets, daily range): BP systolic 117–166; BP diastolic 63–93
[2017-10-29] MEDS: PROMETHAZINE HCL/CODEINE 6.25-10MG/5ML SYRUP UDCUP PO PRN ×6 (01:43→22:36)
[2017-10-29] MEDS: HYDROCODONE/ACETAMINOPHEN 5-325 MG TABLET PO PRN ×4 (02:51→20:57)
[2017-10-29] MEDS: SODIUM CHLORIDE 0.45% 1,000 ML IV SCH (04:13)
[2017-10-29 05:12] LABS: GLUCOSE COMMENT 1 Doctor Notified; GLUCOSE,POINT OF CARE 129 MG/DL (70-110)
[2017-10-29 05:32] LABS: GLUCOSE COMMENT 1 Received Meds; GLUCOSE,POINT OF CARE 207 MG/DL (70-110)
[2017-10-29 05:32] LABS: GLUCOSE COMMENT 1 Received Meds; GLUCOSE,POINT OF CARE 135 MG/DL (70-110)
[2017-10-29 05:34] LABS: CALCIUM, TOTAL 7.8 mg/dL (8.8-10.5); CREATININE 1.53 mg/dL (0.60-1.30); PHOSPHORUS 3.1 mg/dL (2.5-4.9); POTASSIUM 4.2 mmol/L (3.5-5.1)
[2017-10-29] MEDS: INSULIN REGULAR, HUMAN 100 UNITS/ML SQ PRN ×3 (05:53→21:00)
[2017-10-29 07:06] LABS: GLUCOSE COMMENT 1 Received Meds; GLUCOSE,POINT OF CARE 320 MG/DL (70-110)
[2017-10-29] MEDS: DIVALPROEX SODIUM 500 MG ER TABLET PO SCH ×2 (08:37→20:56)
[2017-10-29] MEDS: TOPIRAMATE 100 MG TABLET PO SCH (08:37)
[2017-10-29] MEDS: LevETIRAcetam 500 MG TABLET PO SCH ×2 (08:38→20:56)
[2017-10-29] MEDS: OSELTAMIVIR PHOSPHATE 30 MG CAPSULE PO SCH ×2 (08:38→20:56)
[2017-10-29] MEDS: INSULIN GLARGINE,HUM.REC.ANLOG 100 UNITS/ML SQ SCH ×2 (08:39→22:33)
[2017-10-29 10:17] LABS: GLUCOSE COMMENT 1 Received Meds; GLUCOSE,POINT OF CARE 211 MG/DL (70-110)
[2017-10-30] MEDS: HYDROCODONE/ACETAMINOPHEN 5-325 MG TABLET PO PRN ×4 (04:00→22:59)
[2017-10-30 04:56] VITALS: BP 145/83
[2017-10-30] MEDS: PROMETHAZINE HCL/CODEINE 6.25-10MG/5ML SYRUP UDCUP PO PRN ×4 (05:03→21:32)
[2017-10-30 07:03] VITALS: BP 121/72
[2017-10-30] MEDS: LevETIRAcetam 500 MG TABLET PO SCH ×2 (07:54→21:32)
[2017-10-30] MEDS: OSELTAMIVIR PHOSPHATE 30 MG CAPSULE PO SCH ×2 (07:54→21:32)
[2017-10-30] MEDS: TOPIRAMATE 100 MG TABLET PO SCH (07:54)
[2017-10-30] MEDS: DIVALPROEX SODIUM 500 MG ER TABLET PO SCH ×2 (07:54→21:32)
[2017-10-30] MEDS: INSULIN GLARGINE,HUM.REC.ANLOG 100 UNITS/ML SQ SCH ×2 (08:31→21:33)
[2017-10-30 11:39] VITALS: BP 163/92
[2017-10-30] MEDS: INSULIN REGULAR, HUMAN 100 UNITS/ML SQ PRN ×2 (11:46→21:35)
[2017-10-30 19:40] VITALS: BP 137/91
[2017-10-30 23:37] VITALS: BP 137/81
[2017-10-31] MEDS: PROMETHAZINE HCL/CODEINE 6.25-10MG/5ML SYRUP UDCUP PO PRN ×4 (02:38→16:29)
[2017-10-31 04:52] VITALS: BP 150/88
[2017-10-31] MEDS: HYDROCODONE/ACETAMINOPHEN 5-325 MG TABLET PO PRN ×2 (05:59→12:18)
[2017-10-31] MEDS: INSULIN REGULAR, HUMAN 100 UNITS/ML SQ PRN (06:02)
[2017-10-31] MEDS: LevETIRAcetam 500 MG TABLET PO SCH (07:55)
[2017-10-31] MEDS: DIVALPROEX SODIUM 500 MG ER TABLET PO SCH (07:56)
[2017-10-31] MEDS: OSELTAMIVIR PHOSPHATE 30 MG CAPSULE PO SCH (07:56)
[2017-10-31] MEDS: TOPIRAMATE 100 MG TABLET PO SCH (07:56)
[2017-10-31] MEDS: INSULIN GLARGINE,HUM.REC.ANLOG 100 UNITS/ML SQ SCH (07:57)
[2017-10-31 08:29] VITALS: BP 137/72
[2017-10-31 09:24] LABS: BASOPHILS # (AUTO) 0.01 K/uL (0.00-0.20); BASOPHILS % (AUTO) 0.1 % (0.0-2.0); EOSINOPHILS # (AUTO) 0.06 K/uL (0.00-0.70); EOSINOPHILS % (AUTO) 0.62 % (1.0-6.0); HEMATOCRIT 31.6 % (41-53); HEMOGLOBIN 10.5 g/dL (13.5-17.5); LYMPHOCYTES # (AUTO) 2.4 K/uL (1.0-4.8); LYMPHOCYTES % (AUTO) 26.5 % (22.0-44.0); MEAN CORPUSCULAR HEMOGLOBIN 29.8 pg (26.0-34.0); MEAN CORPUSCULAR HGB CONC 33.3 G/dL (31.0-37.0); MEAN CORPUSCULAR VOLUME 90 fL (80-100); MONOCYTES # (AUTO) 0.6 K/uL (0.1-1.0); MONOCYTES % (AUTO) 6.8 % (2.0-9.0); NEUTROPHILS # (AUTO) 5.9 K/uL (1.8-7.7); PLATELET COUNT (AUTO) 175 K/uL (150-450); RED BLOOD CELL COUNT(AUTO) 3.53 MIL/uL (4.50-5.90); RED CELL DISTRIBUTION WIDTH 14.6 % (11.5-14.5)
[2017-10-31 09:28] LABS: ANION GAP 11 mmol/L (8-16); CALCIUM, TOTAL 8.9 mg/dL (8.8-10.5); CARBON DIOXIDE 23 mmol/L (22-29); CHLORIDE 108 mmol/L (98-107); CREATININE 1.26 mg/dL (0.60-1.30); GLOMERULAR FILTR. RATE CALC > 60 mL/min (>60); PHOSPHORUS 3.9 mg/dL (2.5-4.9); POTASSIUM 4.1 mmol/L (3.5-5.1); SODIUM SERUM 142 mmol/L (136-145); UREA NITROGEN, BLOOD 13 mg/dL (7-18)
[2017-10-31 12:01] VITALS: BP 161/94
[2017-10-31 13:47] LABS: GLUCOSE COMMENT 1 Received Meds; GLUCOSE,POINT OF CARE 145 MG/DL (70-110)
[2017-10-31 13:47] LABS: GLUCOSE COMMENT 1 Received Meds; GLUCOSE,POINT OF CARE 172 MG/DL (70-110)
[2017-10-31 13:47] LABS: GLUCOSE COMMENT 1 Received Meds; GLUCOSE,POINT OF CARE 165 MG/DL (70-110)
[2017-10-31 13:53] LABS: GLUCOSE,POINT OF CARE 134 MG/DL (70-110)
[2017-10-31 16:17] VITALS: BP 122/73
[2017-11-03 19:33] LABS: GLUCOSE COMMENT 1 Received Meds; GLUCOSE,POINT OF CARE 244 MG/DL (70-110)
[2017-11-03 19:34] LABS: GLUCOSE,POINT OF CARE 107 MG/DL (70-110)
[2017-11-03 19:34] LABS: GLUCOSE,POINT OF CARE 90 MG/DL (70-110)
[2017-11-03 19:34] LABS: GLUCOSE COMMENT 1 Received Meds; GLUCOSE,POINT OF CARE 133 MG/DL (70-110)
[2017-11-03 19:34] LABS: GLUCOSE COMMENT 1 Received Meds; GLUCOSE,POINT OF CARE 154 MG/DL (70-110)
[2017-11-03 19:34] LABS: GLUCOSE COMMENT 1 Received Meds; GLUCOSE,POINT OF CARE 102 MG/DL (70-110)
== END 2017-10-31 17:30 | disposition home health service (06) | DRG 469 ==
LOC: EMS 19:24 → ICU 23:18 → 5S 10-29 10:55
PROVIDERS: ADMIT Internal Medicine; ATTEND Internal Medicine
DX: N17.9 Acute kidney failure, unspecified (principal); E10.10 Type 1 diabetes mellitus with ketoacidosis without coma; E87.0 Hyperosmolality and hypernatremia; E10.21 Type 1 diabetes mellitus with diabetic nephropathy; K72.90 Hepatic failure, unspecified without coma; N18.3 Chronic kidney disease, stage 3 (moderate); E83.39 Other disorders of phosphorus metabolism; E87.1 Hypo-osmolality and hyponatremia; E87.5 Hyperkalemia; K70.30 Alcoholic cirrhosis of liver without ascites; D63.8 Anemia in other chronic diseases classified elsewhere; F17.210 Nicotine dependence, cigarettes, uncomplicated; I12.9 Hypertensive chronic kidney disease with stage 1 through stage 4 chronic kidney disease, or unspecified chronic kidney disease; E10.22 Type 1 diabetes mellitus with diabetic chronic kidney disease; E10.319 Type 1 diabetes mellitus with unspecified diabetic retinopathy without macular edema; E10.51 Type 1 diabetes mellitus with diabetic peripheral angiopathy without gangrene; J10.1 Influenza due to other identified influenza virus with other respiratory manifestations; Z82.49 Family history of ischemic heart disease and other diseases of the circulatory system; Z83.3 Family history of diabetes mellitus; Z89.511 Acquired absence of right leg below knee; Z88.8 Allergy status to other drugs, medicaments and biological substances; Z79.4 Long term (current) use of insulin; Z79.899 Other long term (current) drug therapy
CPT/HCPCS: 51702; 70450; 82805; 82962; 83540; 83550; 83605; 83735; 83930; 84100; 87040; 87081; 87804; 93005; 96361; 96374; 96375; 99291; G0480; J1815; J3480; J3490; J7030; J7050